=== PATIENT | female | born 1980 | race Caucasian/White ===

== ENCOUNTER 2017-02-26 20:37 | Emergency (ER) | payer BC ==
[2017-02-26] MEDS ORDERED: Sodium Chloride 0.9% 1,000 ML IV ONE (20:53)
[2017-02-26] MEDS ORDERED: Ketorolac 30 MG/ML SDV IVPUSH ONE (20:53)
[2017-02-26] MEDS ORDERED: cefTRIAXone 2 GM in Premix Bag 1 BAG IV ONE (20:54)
--- NOTE | 2017-02-26 21:05 | EDM.PDOC ---
ED HPI GENERAL MEDICAL PROBLEM - General Chief Complaint: ENT Problem Stated Complaint: PT HAS SORE THROAT DIFFICULTY BREATHING Time Seen by Provider: 02/26/17 20:54 Source of Information: Reports: Patient History Limitations: Reports: No Limitations - History of Present Illness INITIAL COMMENTS - FREE TEXT/NARRATIVE: History of present illness: [37-year-old female comes in complaining of malaise, intermittent fevers and a sore throat with increasingly inability to swallow and some difficulty with breathing off and on.] Review of systems: As per history of present illness and below otherwise all systems reviewed and negative. Past medical history: As per history of present illness and as reviewed below otherwise noncontributory. Surgical history: As per history of present illness and as reviewed below otherwise noncontributory. Social history: No reported history of drug or alcohol abuse. Family history: As per history of present illness and as reviewed below otherwise noncontributory. Physical exam: HEENT: Atraumatic, normocephalic, pupils reactive, negative for conjunctival pallor or scleral icterus, mucous membranes moist with oropharyngeal erythema with gross purulent and white patchy exudate bilaterally with hypertrophic and cryptic tonsils, otherwise neck supple, with cervical adenopathy trachea midline. Lungs: Clear to auscultation, breath sounds equal bilaterally, chest nontender. Heart: S1S2, regular, negative for clicks, rubs, or JVD. Abdomen: Soft, nondistended, nontender. Negative for masses or hepatosplenomegaly. Negative for costovertebral tenderness. Pelvis: Stable nontender. Genitourinary: Deferred. Rectal: Deferred. Extremities: Atraumatic, negative for cords or calf pain. Neurovascular unremarkable. Neuro: Awake, alert, oriented. Cranial nerves II through XII unremarkable. Cerebellum unremarkable. Motor and sensory unremarkable throughout. Exam nonfocal. Diagnostics: [CBC, CMP] Therapeutics: [IV fluid, Toradol] Impression: [Strep pharyngitis] Plan: [azithromycin] Definitive disposition and diagnosis as appropriate pending reevaluation and review of above. Throat Pain Score (Numeric/FACES): 8 Bilateral Ear Pain Score (Numeric/FACES): 8 - Related Data Allergies Allergy/AdvReac Type Severity Reaction Status Date / Time adhesive Allergy Rash Verified 02/26/17 20:52 clindamycin Allergy Difficulty Verified 02/26/17 20:50 Breathing Latex, Natural Rubber Allergy Rash Verified 02/26/17 20:52 penicillin Allergy Cannot Verified 02/26/17 20:50 Remember Sulfa (Sulfonamide Allergy Rash Verified 02/26/17 20:50 Antibiotics) sulfamethoxazole Allergy Rash Verified 02/26/17 20:50 [From ] trimethoprim [From ] Allergy Rash Verified 02/26/17 20:50 codeine AdvReac unsure Verified 02/26/17 20:53 Home Meds: Home Meds ALPRAZolam [Alprazolam] 1 mg PO TID 05/12/15 [History] oxyCODONE HCl [oxyCODONE] 30 mg PO Q4H PRN 05/12/15 [History] Morphine 30 mg PO Q4H 08/21/16 [History] Muscle Relaxer 10 mg PO TID 08/21/16 [History] Azithromycin [IJD: Azithromycin] 250 mg PO DAILY #6 tab 02/26/17 [Rx] Past Medical History Other HEENT History: tonsillitis Musculoskeletal History: Reports: Other (See Below) Other Musculoskeletal History: Broken Back in December 2014; wears back amado. Psychiatric History: Reports: Anxiety Social & Family History - Family History Family Medical History: Noncontributory - Tobacco Use Smoking Status *Q: Never Smoker Second Hand Smoke Exposure: Yes - Caffeine Use Caffeine Use: Reports: None - Recreational Drug Use Recreational Drug Use: No Drug Use in Last 12 Months: Yes Recreational Drug Type: Reports: Marijuana/Hashish ED ROS ENT - Review of Systems Review Of Systems: See Below (See history of present illness) ED EXAM, ENT - Physical Exam Exam: See Below (See history of present illness) Course - Vital Signs Last Recorded V/S: Last Vital Signs Temp 36.6 C 02/26/17 20:54 Pulse 120 H 02/26/17 20:54 Resp 16 02/26/17 20:54 BP 139/86 02/26/17 20:54 Pulse Ox 98 02/26/17 20:54 - Orders/Labs/Meds Orders: Active Orders 24 hr Category Date Time Status CULTURE BLOOD [BC] Stat Lab 02/26/17 21:56 Ordered CULTURE BLOOD [BC] Stat Lab 02/26/17 21:56 Ordered CULTURE STREP A CONFIRMATION [RM] Stat Lab 02/26/17 21:30 Results LACTIC ACID,WHOLE BLOOD [BG] Stat Lab 02/26/17 21:56 Ordered STREP SCRN A RAPID W CULT CONF [RM] Stat Lab 02/26/17 21:30 Results Blood Culture x2 Reflex Set [OM.PC] Stat Oth 02/26/17 21:56 Ordered Labs: Laboratory Tests 02/26/17 02/26/17 Range/Units 21:07 21:07 WBC 19.16 H (4.0-11.0) K/uL RBC 4.24 L (4.30-5.90) M/uL Hgb 11.9 L (12.0-16.0) g/dL Hct 37.4 (36.0-46.0) % MCV 88.2 (80.0-98.0) fL MCH 28.1 (27.0-32.0) pg MCHC 31.8 (31.0-37.0) g/dL RDW Std Deviation 47.8 (28.0-62.0) fl RDW Coeff of Reynaldo 15 (11.0-15.0) % Plt Count 309 (150-400) K/uL MPV 9.90 (7.40-12.00) fL Neut % (Auto) 72.7 (48.0-80.0) % Lymph % (Auto) 16.8 (16.0-40.0) % [place] % (Auto) 9.0 (0.0-15.0) % Eos % (Auto) 1.2 (0.0-7.0) % Baso % (Auto) 0.3 (0.0-1.5) % Neut # (Auto) 13.9 H (1.4-5.7) K/uL Lymph # (Auto) 3.2 H (0.6-2.4) K/uL [place] # (Auto) 1.7 H (0.0-0.8) K/uL Eos # (Auto) 0.2 (0.0-0.7) K/uL Baso # (Auto) 0.1 (0.0-0.1) K/uL Nucleated RBC % 0.0 /100WBC Nucleated RBCs # 0 K/uL Sodium 137 (136-146) mmol/L Potassium 3.9 (3.5-5.1) mmol/L Chloride 103 (98-110) mmol/L Carbon Dioxide 23 (21-31) mmol/L BUN 10 (6.0-23.0) mg/dL Creatinine 0.9 (0.6-1.5) mg/dL Est Cr Clr Drug Dosing 75.52 mL/min Estimated GFR (MDRD) > 60.0 ml/min Glucose 96 (60-110) mg/dL Calcium 11.2 H (8.8-10.8) mg/dL Total Bilirubin 0.7 (0.1-1.5) mg/dL AST 15 (5-40) IU/L ALT 14 (8-54) IU/L Alkaline Phosphatase 82 (40-150) Total Protein 8.5 H (6.0-8.0) g/dL Albumin 4.6 (3.5-5.0) g/dL Globulin 3.9 H (2.0-3.5) g/dL Albumin/Globulin Ratio 1.2 L (1.3-2.8) Meds: Medications Discontinued Medications Generic Name Dose Route Start Last Admin Trade Name Freq PRN Reason Stop Dose Admin Sodium Chloride 1,000 mls @ 999 mls/hr 02/26/17 20:53 02/26/17 21:16 Normal Saline IV 02/26/17 21:53 999 mls/hr STAT ONE Administration Ceftriaxone Sodium/Dextrose 2 50 mls @ 100 mls/hr 02/26/17 20:54 02/26/17 21: 18 gm/ Premix IV 02/26/17 21:23 100 mls/hr ONETIME ONE Administration Ketorolac Tromethamine 30 mg 02/26/17 20:53 02/26/17 21:19 Toradol IVPUSH 02/26/17 20:54 30 mg ONETIME ONE Administration Departure - Departure Time of Disposition: 22:05 Disposition: Home, Self-Care 01 Condition: Good Clinical Impression: Pharyngitis, Tonsillitis - Discharge Information Forms: ED Department Discharge Additional Instructions: The following information is given to patients seen in the emergency department who are being discharged to home. This information is to outline your options for follow-up care. We provide all patients seen in our emergency department with a follow-up referral. The need for follow-up, as well as the timing and circumstances, are variable depending upon the specifics of your emergency department visit. If you don't have a primary care physician on staff, we will provide you with a referral. We always advise you to contact your personal physician following an emergency department visit to inform them of the circumstance of the visit and for follow-up with them and/or the need for any referrals to a consulting specialist. The emergency department will also refer you to a specialist when appropriate. This referral assures that you have the opportunity for follow-up care with a specialist. All of these measure are taken in an effort to provide you with optimal care, which includes your follow-up. Under all circumstances we always encourage you to contact your private physician who remains a resource for coordinating your care. When calling for follow-up care, please make the office aware that this follow-up is from your recent emergency room visit. If for any reason you are refused follow-up, please contact the [facility] Emergency Department at and asked to speak to the emergency department charge nurse. You're been given a initial dose of antibiotics today the rest of your prescription will have been sent to her pharmacy record which is G NG Rest hydrate You may take [id number] ibuprofen or Tylenol for pain or discomfort Follow-up with your PCP in 1-2 days Return to ED as needed as discussed - My Orders Last 24 Hours: My Active Orders 02/26/17 21:30 CULTURE STREP A CONFIRMATION [RM] Stat STREP SCRN A RAPID W CULT CONF [RM] Stat 02/26/17 21:56 CULTURE BLOOD [BC] Stat CULTURE BLOOD [BC] Stat LACTIC ACID,WHOLE BLOOD [BG] Stat Blood Culture x2 Reflex Set [OM.PC] Stat - Assessment/Plan Last 24 Hours: My Active Orders 02/26/17 21:30 CULTURE STREP A CONFIRMATION [RM] Stat STREP SCRN A RAPID W CULT CONF [RM] Stat 02/26/17 21:56 CULTURE BLOOD [BC] Stat CULTURE BLOOD [BC] Stat LACTIC ACID,WHOLE BLOOD [BG] Stat Blood Culture x2 Reflex Set [OM.PC] Stat
[2017-02-26 21:35] LABS: CHLORIDE,CL 103 mmol/L (98-110); SODIUM,NA 137 mmol/L (136-146)
[2017-02-26] MEDS ORDERED: Azithromycin 250 MG Tab PO ONE (22:02)
[2017-02-26 23:14] VITALS: BP 160/85
== END 2017-02-26 22:55 | disposition home or self-care (01) ==
LOC: MW.ED 20:37
DX: J02.0 Streptococcal pharyngitis (principal); F41.9 Anxiety disorder, unspecified; Z79.2 Long term (current) use of antibiotics; Z88.0 Allergy status to penicillin; Z88.1 Allergy status to other antibiotic agents; Z88.2 Allergy status to sulfonamides; Z88.5 Allergy status to narcotic agent; Z91.040 Latex allergy status
CPT/HCPCS: 80053; 83605; 85025; 87081; 87880; 96365; 96375; 99283; A9270; J0696; J1885; J7040; 99284

== ENCOUNTER 2017-05-02 23:27 | Emergency (ER) | payer BC ==
[2017-05-02] MEDS ORDERED: diphenhydrAMINE 50 MG/ML SDV ONE (23:34)
[2017-05-02] MEDS ORDERED: Albuterol/Ipratropium 3.0-0.5 MG/3 ML Neb Soln ONE (23:34)
[2017-05-02] MEDS ORDERED: methylPREDNISolone Sodium Succinate 125 MG/2 ML SDV ONE (23:35)
[2017-05-02] MEDS ORDERED: Albuterol/Ipratropium 3.0-0.5 MG/3 ML Neb Soln NEB ONE (23:50)
[2017-05-02] MEDS ORDERED: diphenhydrAMINE 50 MG/ML SDV IVPUSH ONE (23:50)
--- NOTE | 2017-05-02 23:50 | EDM.PDOC ---
ED HPI GENERAL MEDICAL PROBLEM - General Chief Complaint: Allergic Reaction Stated Complaint: ALLERGIC REACTION Time Seen by Provider: 05/02/17 23:39 - History of Present Illness INITIAL COMMENTS - FREE TEXT/NARRATIVE: HISTORY AND PHYSICAL: History of present illness: Patient 37-year-old female presents with a concern of hives and difficulty breathing this is relatively mild she has had a similar episode in past that she thought was due to antibiotics she does not know what may have been the cause of this event that started prior to arrival she denies any other concern. Review of systems: As per history of present illness and below otherwise all systems reviewed and negative. Past medical history: As per history of present illness and as reviewed below otherwise noncontributory. Surgical history: As per history of present illness and as reviewed below otherwise noncontributory. Social history: No reported history of drug or alcohol abuse. Family history: As per history of present illness and as reviewed below otherwise noncontributory. Physical exam: HEENT: Atraumatic, normocephalic, pupils reactive, negative for conjunctival pallor or scleral icterus, mucous membranes moist, throat clear, neck supple, nontender, trachea midline. Lungs: Clear to auscultation, breath sounds equal bilaterally, chest nontender. Heart: S1S2, regular, negative for clicks, rubs, or JVD. Abdomen: Soft, nondistended, nontender. Negative for masses or hepatosplenomegaly. Negative for costovertebral tenderness. Pelvis: Stable nontender. Genitourinary: Deferred. Rectal: Deferred. Extremities: Atraumatic, negative for cords or calf pain. Neurovascular unremarkable. Neuro: Awake, alert, oriented. Cranial nerves II through XII unremarkable. Cerebellum unremarkable. Motor and sensory unremarkable throughout. Exam nonfocal. Skin: Patient has a urticarial type rash noted somewhat diffuse no tongue or lip swelling noted Diagnostics: None Therapeutics: IV Benadryl 50 mg IV Cymetra 125 mg IV albuterol ipratropium nebulizer Impression: #1 presumptive acute allergic reaction etiology to be determined Definitive disposition and diagnosis as appropriate pending reevaluation and review of above. - Related Data Allergies Allergy/AdvReac Type Severity Reaction Status Date / Time adhesive Allergy Rash Verified 05/02/17 23:43 clindamycin Allergy Difficulty Verified 05/02/17 23:43 Breathing Latex, Natural Rubber Allergy Rash Verified 05/02/17 23:43 penicillin Allergy Cannot Verified 05/02/17 23:43 Remember Sulfa (Sulfonamide Allergy Rash Verified 05/02/17 23:43 Antibiotics) sulfamethoxazole Allergy Rash Verified 05/02/17 23:43 [From ] trimethoprim [From ] Allergy Rash Verified 05/02/17 23:43 codeine AdvReac unsure Verified 05/02/17 23:43 Home Meds: Home Meds ALPRAZolam [Alprazolam] 1 mg PO TID 05/12/15 [History] oxyCODONE HCl [oxyCODONE] 30 mg PO Q4H PRN 05/12/15 [History] Morphine 30 mg PO Q4H 08/21/16 [History] Muscle Relaxer 10 mg PO TID 08/21/16 [History] Azithromycin [IJD: Azithromycin] 250 mg PO DAILY #6 tab 02/26/17 [Rx] Past Medical History Other HEENT History: tonsillitis Cardiovascular History: Reports: None Respiratory History: Reports: None Gastrointestinal History: Reports: None Musculoskeletal History: Reports: Other (See Below) Other Musculoskeletal History: Broken Back in December 2014; wears back amado. Psychiatric History: Reports: Anxiety Dermatologic History: Reports: None - Infectious Disease History Infectious Disease History: Reports: Chicken Pox, Influenza - Past Surgical History HEENT Surgical History: Reports: Oral Surgery Cardiovascular Surgical History: Reports: None Social & Family History - Family History Family Medical History: Noncontributory - Tobacco Use Smoking Status *Q: Never Smoker Second Hand Smoke Exposure: Yes - Caffeine Use Caffeine Use: Reports: None - Recreational Drug Use Recreational Drug Use: No Drug Use in Last 12 Months: Yes Recreational Drug Type: Reports: Marijuana/Hashish ED ROS ALLERGIC REACTION - Review of Systems Review Of Systems: ROS reveals no pertinent complaints other than HPI. ED EXAM GENERAL NO PERIP PULSE - Physical Exam Exam: See Below (See dictation) Course - Orders/Labs/Meds Meds: Medications Discontinued Medications Generic Name Dose Route Start Last Admin Trade Name Freq PRN Reason Stop Dose Admin Albuterol/Ipratropium Confirm 05/02/17 23:34 Duoneb 3.0-0.5 Mg/3 Ml Administered 05/02/17 23:35 Dose 3 ml .ROUTE .STK-MED ONE Diphenhydramine HCl Confirm 05/02/17 23:34 Benadryl Administered 05/02/17 23:35 Dose 50 mg .ROUTE .STK-MED ONE Methylprednisolone Sodium Succinate Confirm 05/02/17 23:35 Solu-Medrol Administered 05/02/17 23:36 Dose 125 mg .ROUTE .STK-MED ONE Departure - Departure Time of Disposition: 23:49 Disposition: Home, Self-Care 01 Condition: Good Clinical Impression: Allergic reaction - Discharge Information Additional Instructions: The following information is given to patients seen in the emergency department who are being discharged to home. This information is to outline your options for follow-up care. We provide all patients seen in our emergency department with a follow-up referral. The need for follow-up, as well as the timing and circumstances, are variable depending upon the specifics of your emergency department visit. If you don't have a primary care physician on staff, we will provide you with a referral. We always advise you to contact your personal physician following an emergency department visit to inform them of the circumstance of the visit and for follow-up with them and/or the need for any referrals to a consulting specialist. The emergency department will also refer you to a specialist when appropriate. This referral assures that you have the opportunity for followup care with a specialist. All of these measure are taken in an effort to provide you with optimal care, which includes your followup. Under all circumstances we always encourage you to contact your private physician who remains a resource for coordinating your care. When calling for followup care, please make the office aware that this follow-up is from your recent emergency room visit. If for any reason you are refused follow-up, please contact the [facility] emergency department at and asked to speak to the emergency department charge nurse. Albuterol as directed Medrol Dosepak is prescribed Benadryl as prescribed EpiPen as directed follow primary medical doctor 1 today's return as needed as discussed]
[2017-05-02] MEDS ORDERED: methylPREDNISolone Sodium Succinate 125 MG/2 ML SDV IVPUSH ONE (23:51)
[2017-05-03 01:44] VITALS: BP 143/69
== END 2017-05-03 01:05 | disposition home or self-care (01) ==
LOC: MW.ED 23:27
DX: L50.0 Allergic urticaria (principal); R06.00 Dyspnea, unspecified; F41.9 Anxiety disorder, unspecified; Z91.040 Latex allergy status; Z88.2 Allergy status to sulfonamides; Z88.1 Allergy status to other antibiotic agents; Z88.5 Allergy status to narcotic agent; Z79.899 Other long term (current) drug therapy; Z88.0 Allergy status to penicillin
CPT/HCPCS: 96374; 96375; 99283; J1200; J2930

== ENCOUNTER 2017-09-17 20:20 | Emergency (ER) | payer BC ==
[2017-09-17] MEDS ORDERED: Ondansetron 4 MG/2 ML SDV IVPUSH ONE (21:58)
[2017-09-17] MEDS ORDERED: Pantoprazole 40 MG Vial IVPUSH ONE (21:58)
[2017-09-17] MEDS ORDERED: Sodium Chloride 0.9% 1,000 ML IV ONE (21:58)
[2017-09-17] MEDS ORDERED: Morphine 4 MG/ML Syringe IVPUSH ONE (21:58)
--- NOTE | 2017-09-17 23:20 | EDM.PDOC ---
ED HPI GENERAL MEDICAL PROBLEM - General Chief Complaint: General Stated Complaint: POSSIBLE ULCER Time Seen by Provider: 09/17/17 21:17 Source of Information: Reports: Patient History Limitations: Reports: No Limitations - History of Present Illness INITIAL COMMENTS - FREE TEXT/NARRATIVE: History of present illness: [37-year-old female comes in complaining of dental abscess. Patient indicates that she has been seen by her PCP as well as her dentist and is being referred to an business development professional for further invasive procedures but in the meantime she is taken quite a bit of medication and now she has abdominal pain, as well as vomiting. Patient is concerned she has developed an ulcer. Patient became she has a history of an ulcer that had healed and it feels like the same pain.] Review of systems: As per history of present illness and below otherwise all systems reviewed and negative. Past medical history: As per history of present illness and as reviewed below otherwise noncontributory. Surgical history: As per history of present illness and as reviewed below otherwise noncontributory. Social history: No reported history of drug or alcohol abuse. Family history: As per history of present illness and as reviewed below otherwise noncontributory. Physical exam: HEENT: Atraumatic, normocephalic, pupils reactive, negative for conjunctival pallor or scleral icterus, mucous membranes moist, throat clear, neck supple, nontender, trachea midline. Lungs: Clear to auscultation, breath sounds equal bilaterally, chest nontender. Heart: S1S2, regular, negative for clicks, rubs, or JVD. Abdomen: Soft, nondistended, nontender. Negative for masses or hepatosplenomegaly. Negative for costovertebral tenderness. Pelvis: Stable nontender. Genitourinary: Deferred. Rectal: Deferred. Extremities: Atraumatic, negative for cords or calf pain. Neurovascular unremarkable. Neuro: Awake, alert, oriented. Cranial nerves II through XII unremarkable. Cerebellum unremarkable. Motor and sensory unremarkable throughout. Exam nonfocal. Patient has had several run of antibiotics. Will not prescribe new antibiotics because she continues to be on previous antibiotics will refer her back to Dr. tamayo her PCP Diagnostics: [] Therapeutics: [Morphine Zofran] Impression: [Dental abscess] Plan: [Fall with Dr. Winn in the a.m.] Definitive disposition and diagnosis as appropriate pending reevaluation and review of above. left upper tooth pain Pain Score (Numeric/FACES): 8 - Related Data Allergies Allergy/AdvReac Type Severity Reaction Status Date / Time adhesive Allergy Rash Verified 05/02/17 23:43 clindamycin Allergy Difficulty Unverified 09/17/17 20:51 Breathing Latex, Natural Rubber Allergy Rash Verified 05/02/17 23:43 penicillin Allergy Cannot Verified 05/02/17 23:43 Remember Sulfa (Sulfonamide Allergy Rash Verified 05/02/17 23:43 Antibiotics) sulfamethoxazole Allergy Rash Verified 05/02/17 23:43 [From ] trimethoprim [From ] Allergy Rash Verified 05/02/17 23:43 codeine AdvReac unsure Verified 05/02/17 23:43 Home Meds: Home Meds ALPRAZolam [Alprazolam] 2 mg PO TID 05/12/15 [History] oxyCODONE HCl [oxyCODONE] 30 mg PO Q4H PRN 05/12/15 [History] Morphine 30 mg PO DAILY 08/21/16 [History] Muscle Relaxer 10 mg PO TID 08/21/16 [History] Past Medical History - Past Health History Medical/Surgical History: Denies Medical/Surgical History Other HEENT History: tonsillitis Cardiovascular History: Reports: None, Heart Murmur Respiratory History: Reports: None Gastrointestinal History: Reports: None, Other (See Below) Other Gastrointestinal History: ulcer 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 Psychiatric History: Reports: Anxiety Hematologic History: Reports: None Dermatologic History: Reports: None - Infectious Disease History Infectious Disease History: Reports: Chicken Pox - Past Surgical History HEENT Surgical History: Reports: Oral Surgery Cardiovascular Surgical History: Reports: None Social & Family History - Family History Family Medical History: Noncontributory - Tobacco Use Smoking Status *Q: Never Smoker Second Hand Smoke Exposure: Yes - Caffeine Use Caffeine Use: Reports: None - Recreational Drug Use Recreational Drug Use: No Drug Use in Last 12 Months: Yes Recreational Drug Type: Reports: Marijuana/Hashish ED ROS GENERAL - Review of Systems Review Of Systems: See Below (History of present illness) ED EXAM, GENERAL - Physical Exam Exam: See Below (See history of present illness) Course - Vital Signs Last Recorded V/S: Last Vital Signs Temp 37.1 C 09/17/17 20:54 Pulse 104 H 09/17/17 20:54 Resp 18 09/17/17 20:54 BP 154/113 H 09/17/17 20:54 Pulse Ox 98 09/17/17 20:54 - Orders/Labs/Meds Meds: Medications Discontinued Medications Generic Name Dose Route Start Last Admin Trade Name Love PRN Reason Stop Dose Admin Sodium Chloride 1,000 mls @ 999 mls/hr 09/17/17 21:58 09/17/17 22:59 Normal Saline IV 09/17/17 22:58 999 mls/hr STAT ONE Administration Morphine Sulfate 4 mg 09/17/17 21:58 09/17/17 22:58 Morphine IVPUSH 09/17/17 21:59 4 mg ONETIME ONE Administration Ondansetron HCl 4 mg 09/17/17 21:58 09/17/17 22:59 Zofran IVPUSH 09/17/17 21:59 4 mg ONETIME ONE Administration Pantoprazole Sodium 80 mg 09/17/17 21:58 09/17/17 22:59 Protonix Iv IVPUSH 09/17/17 21:59 80 mg .BOLUS ONE Administration Departure - Departure Time of Disposition: 23:19 Disposition: Home, Self-Care 01 Condition: Good Clinical Impression: Pain, dental, Abscess - Discharge Information Referrals: Rainer Winn DO [Primary Care Provider] - Additional Instructions: The following information is given to patients seen in the emergency department who are being discharged to home. This information is to outline your options for follow-up care. We provide all patients seen in our emergency department with a follow-up referral. The need for follow-up, as well as the timing and circumstances, are variable depending upon the specifics of your emergency department visit. If you don't have a primary care physician on staff, we will provide you with a referral. We always advise you to contact your personal physician following an emergency department visit to inform them of the circumstance of the visit and for follow-up with them and/or the need for any referrals to a consulting specialist. The emergency department will also refer you to a specialist when appropriate. This referral assures that you have the opportunity for follow-up care with a specialist. All of these measure are taken in an effort to provide you with optimal care, which includes your follow-up. Under all circumstances we always encourage you to contact your private physician who remains a resource for coordinating your care. When calling for follow-up care, please make the office aware that this follow-up is from your recent emergency room visit. If for any reason you are refused follow-up, please contact the [facility] Emergency Department at and asked to speak to the emergency department charge nurse. Follow-up with Dr. Winn in the a.m. You may take Zantac/ranitidine [id number] for any GI distress as discussed Return to ER as needed as discussed
[2017-09-18 03:58] VITALS: BP 137/97
== END 2017-09-18 00:17 | disposition home or self-care (01) ==
LOC: MW.ED 20:20
DX: K04.7 Periapical abscess without sinus (principal); F41.9 Anxiety disorder, unspecified; Z77.22 Contact with and (suspected) exposure to environmental tobacco smoke (acute) (chronic); Z79.899 Other long term (current) drug therapy; Z88.0 Allergy status to penicillin; Z88.1 Allergy status to other antibiotic agents; Z88.2 Allergy status to sulfonamides; Z88.5 Allergy status to narcotic agent; Z91.040 Latex allergy status; Z91.048 Other nonmedicinal substance allergy status
CPT/HCPCS: 96361; 96374; 96375; 99282; C9113; J2270; J2405; J7040

== ENCOUNTER 2017-11-03 06:17 | Emergency (ER) | payer BC ==
[2017-11-03] MEDS ORDERED: methylPREDNISolone Sodium Succinate 125 MG/2 ML SDV IM ONE (07:19)
[2017-11-03] MEDS ORDERED: Albuterol/Ipratropium 3.0-0.5 MG/3 ML Neb Soln NEB ONE (07:19)
--- NOTE | 2017-11-03 07:24 | EDM.PDOC ---
ED HPI GENERAL MEDICAL PROBLEM - General Chief Complaint: General Stated Complaint: COUGH Time Seen by Provider: 11/03/17 07:20 Source of Information: Reports: Patient - History of Present Illness INITIAL COMMENTS - FREE TEXT/NARRATIVE: HISTORY AND PHYSICAL: History of present illness: []Patient has a history of asthma and bronchitis should this had sore throat and cough over the last week triggering her asthma no fever nausea vomiting chills sweats She has a secondary complaint of a dental abscess and history of gastric ulcer. she has not been tolerating medicines due to this combination for this she has been on clindamycin and doxycycline. No fever nausea vomiting chills sweats no chest pain shortness breath headache dizziness or palpitation no bowel or urine symptoms Review of systems: As per history of present illness and below otherwise all systems reviewed and negative. Past medical history: As per history of present illness and as reviewed below otherwise noncontributory. Surgical history: As per history of present illness and as reviewed below otherwise noncontributory. Social history: No reported history of drug or alcohol abuse. Family history: As per history of present illness and as reviewed below otherwise noncontributory. Physical exam: HEENT: Atraumatic, normocephalic, pupils reactive, negative for conjunctival pallor or scleral icterus, mucous membranes moist, throat clear, neck supple, nontender, trachea midline. Lungs: Clear to auscultation, breath sounds equal bilaterally, chest nontender. Heart: S1S2, regular, negative for clicks, rubs, or JVD. Abdomen: Soft, nondistended, nontender. Negative for masses or hepatosplenomegaly. Negative for costovertebral tenderness. Pelvis: Stable nontender. Genitourinary: Deferred. Rectal: Deferred. Extremities: Atraumatic, negative for cords or calf pain. Neurovascular unremarkable. Neuro: Awake, alert, oriented. Cranial nerves II through XII unremarkable. Cerebellum unremarkable. Motor and sensory unremarkable throughout. Exam nonfocal. Diagnostics: [Strep influenza Chest 2 views ] Therapeutics: DuoNeb Solu-Medrol 125 mg IM [Levaquin 500 mg by mouth daily #10 no refill ProAir HFA Medrol Dosepak ] Impression: [Dental abscess partially treated Acute bronchitis Chronic history of baseline] Definitive disposition and diagnosis as appropriate pending reevaluation and review of above. head Pain Score (Numeric/FACES): 5 back Pain Score (Numeric/FACES): 6 - Related Data Allergies Allergy/AdvReac Type Severity Reaction Status Date / Time adhesive Allergy Rash Verified 11/03/17 06:22 clindamycin Allergy Difficulty Unverified 11/03/17 06:22 Breathing Latex, Natural Rubber Allergy Rash Verified 11/03/17 06:22 penicillin Allergy Cannot Verified 11/03/17 06:22 Remember Sulfa (Sulfonamide Allergy Rash Verified 11/03/17 06:22 Antibiotics) sulfamethoxazole Allergy Rash Verified 11/03/17 06:22 [From Septra] trimethoprim [From Mayra] Allergy Rash Verified 11/03/17 06:22 codeine AdvReac unsure Verified 11/03/17 06:22 Home Meds: Home Meds ALPRAZolam [Alprazolam] 1 mg PO BID 05/12/15 [History] oxyCODONE HCl [oxyCODONE] 30 mg PO Q4H PRN 05/12/15 [History] Morphine 30 mg PO BID 08/21/16 [History] Past Medical History - Past Health History Medical/Surgical History: Denies Medical/Surgical History Other HEENT History: tonsillitis Cardiovascular History: Reports: Heart Murmur Respiratory History: Reports: None Gastrointestinal History: Reports: Other (See Below) Other Gastrointestinal History: ulcer 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: Musculoskeletal History: Reports: Other (See Below) Other Musculoskeletal History: Broken Back in December 2014 Psychiatric History: Reports: Anxiety Hematologic History: Reports: None Dermatologic History: Reports: None - Infectious Disease History Infectious Disease History: Reports: Chicken Pox - Past Surgical History HEENT Surgical History: Reports: Oral Surgery Cardiovascular Surgical History: Reports: None Social & Family History - Family History Family Medical History: Noncontributory - Tobacco Use Smoking Status *Q: Never Smoker Second Hand Smoke Exposure: Yes - Caffeine Use Caffeine Use: Reports: None - Recreational Drug Use Recreational Drug Use: No Drug Use in Last 12 Months: Yes Recreational Drug Type: Reports: Marijuana/Hashish ED ROS GENERAL - Review of Systems Review Of Systems: ROS reveals no pertinent complaints other than HPI. ED EXAM, GENERAL - Physical Exam Exam: See Below Course - Vital Signs Last Recorded V/S: Last Vital Signs Temp 98.9 F 11/03/17 06:17 Pulse 122 H 11/03/17 06:17 Resp 20 11/03/17 06:17 BP 164/113 H 11/03/17 06:17 Pulse Ox 95 11/03/17 06:17 - Orders/Labs/Meds Orders: Active Orders 24 hr Category Date Time Status RT Aerosol Therapy [RC] ASDIRECTED Care 11/03/17 07:19 Ordered Chest 1V Frontal [CR] Stat Exams 11/03/17 06:39 Taken CULTURE STREP A CONFIRMATION [] Stat Lab 11/03/17 06:35 Results CULTURE URINE [RM] Stat Lab 11/03/17 06:59 Ordered STREP SCRN A RAPID W CULT CONF [] Stat Lab 11/03/17 06:35 Results Albuterol/Ipratropium [DuoNeb 3.0-0.5 MG/3 ML] Med 11/03/17 07:19 Once 3 ml NEB ONETIME ONE methylPREDNISolone Sod Succ [Solu-MEDROL] Med 11/03/17 07:19 Once 125 mg IM ONETIME ONE Medication Orders Albuterol/Ipratropium (Duoneb 3.0-0.5 Mg/3 Ml) 3 ml NEB ONETIME ONE Stop: 11/03/17 07:20 Methylprednisolone Sodium Succinate (Solu-Medrol) 125 mg IM ONETIME ONE Stop: 11/03/17 07:20 Labs: Laboratory Tests 11/03/17 11/03/17 Range/Units 06:35 06:35 Urine Color YELLOW Urine Appearance CLEAR Urine pH 6.0 (5.0-8.0) Ur Specific [place] 1.015 (1.001-1.035) Urine Protein NEGATIVE (NEGATIVE) mg/dL Urine Glucose (UA) NEGATIVE (NEGATIVE) mg/dL Urine Ketones NEGATIVE (NEGATIVE) mg/dL Urine Occult Blood NEGATIVE (NEGATIVE) Urine Nitrite NEGATIVE (NEGATIVE) Urine Bilirubin NEGATIVE (NEGATIVE) Urine Urobilinogen 0.2 (<2.0) EU/dL Ur Leukocyte Esterase NEGATIVE (NEGATIVE) Urine RBC 0-1 (0-2/HPF) Urine WBC 0-1 (0-5/HPF) Ur Epithelial Cells RARE (NONE-FEW) Urine Bacteria RARE (NEGATIVE) Urine HCG, Qual NEGATIVE (NEGATIVE) Meds: Medications Generic Name Dose Route Start Last Admin Trade Name Freq PRN Reason Stop Dose Admin Albuterol/Ipratropium 3 ml 11/03/17 07:19 Duoneb 3.0-0.5 Mg/3 Ml NEB 11/03/17 07:20 ONETIME ONE Methylprednisolone Sodium Succinate 125 mg 11/03/17 07:19 Solu-Medrol IM 11/03/17 07:20 ONETIME ONE Departure - Departure Time of Disposition: 07:23 Disposition: Home, Self-Care 01 Condition: Good Clinical Impression: Acute bronchitis - Discharge Information Referrals: Kellie Maya BIN FILLER [Primary Care Provider] - Additional Instructions: Follow-up with neurosurgeon for continued management of dental abscess Medication as prescribed Return if symptoms persist or worsen Take your inhaler 4 times daily for 7-10 days Follow-up with primary care as needed The following information is given to patients seen in the emergency department who are being discharged to home. This information is to outline your options for follow-up care. We provide all patients seen in our emergency department with a follow-up referral. The need for follow-up, as well as the timing and circumstances, are variable depending upon the specifics of your emergency department visit. If you don't have a primary care physician on staff, we will provide you with a referral. We always advise you to contact your personal physician following an emergency department visit to inform them of the circumstance of the visit and for follow-up with them and/or the need for any referrals to a consulting specialist. The emergency department will also refer you to a specialist when appropriate. This referral assures that you have the opportunity for follow-up care with a specialist. All of these measure are taken in an effort to provide you with optimal care, which includes your follow-up. Under all circumstances we always encourage you to contact your private physician who remains a resource for coordinating your care. When calling for follow-up care, please make the office aware that this follow-up is from your recent emergency room visit. If for any reason you are refused follow-up, please contact the [facility] emergency department at and asked to speak to the emergency department charge nurse. - My Orders Last 24 Hours: My Active Orders 11/03/17 07:19 RT Aerosol Therapy [RC] ASDIRECTED Albuterol/Ipratropium [DuoNeb 3.0-0.5 MG/3 ML] 3 ml NEB ONETIME ONE methylPREDNISolone Sod Succ [Solu-MEDROL] 125 mg IM ONETIME ONE - Assessment/Plan Last 24 Hours: My Active Orders 11/03/17 07:19 RT Aerosol Therapy [RC] ASDIRECTED Albuterol/Ipratropium [DuoNeb 3.0-0.5 MG/3 ML] 3 ml NEB ONETIME ONE methylPREDNISolone Sod Succ [Solu-MEDROL] 125 mg IM ONETIME ONE
[2017-11-03 07:52] VITALS: BP 190/93
--- NOTE | 2017-11-03 15:19 | CR ---
EXAM DATE: 11/03/17 PATIENT'S AGE: 37 Patient: NAHID CHENG Facility: [place], [place] Site . Site : 1980 Study: XRay Chest [id number]/20/2018 7:06:07 AM Ordering Physician: Doctor Begum Final Report: INDICATION: Cough. Nonsmoker. TECHNIQUE: Single-view chest. COMPARISON: 07/13/2015. FINDINGS: Heart mildly enlarged which is a new finding. Mild increased pulmonary vascularity in the upper lungs new and suggesting pulmonary venous congestion. Lungs clear without infiltrate or consolidation. Chest otherwise unremarkable. Dictated by Awais Roman MD @ Nov 03 2017 7:08AM (Electronic Signature) Report Signed by Proxy. FREDIS
== END 2017-11-03 07:50 | disposition home or self-care (01) ==
LOC: MW.ED 06:17
DX: J20.9 Acute bronchitis, unspecified (principal); K04.7 Periapical abscess without sinus; F41.9 Anxiety disorder, unspecified; Z77.22 Contact with and (suspected) exposure to environmental tobacco smoke (acute) (chronic); Z88.0 Allergy status to penicillin; Z88.1 Allergy status to other antibiotic agents; Z88.2 Allergy status to sulfonamides; Z91.040 Latex allergy status; Z91.048 Other nonmedicinal substance allergy status
CPT/HCPCS: 71045; 81001; 81025; 87081; 87086; 87804; 87880; 94640; 96372; 99285; J2930; 99283

== ENCOUNTER 2018-02-09 18:50 | Emergency (ER) | payer BC ==
[2018-02-09 19:02] VITALS: BP 138/77
--- NOTE | 2018-02-09 19:26 | EDM.PDOC ---
ED HPI GENERAL MEDICAL PROBLEM - General Chief Complaint: General Stated Complaint: HBP Time Seen by Provider: 02/09/18 19:26 Source of Information: Reports: Patient, EMS - History of Present Illness INITIAL COMMENTS - FREE TEXT/NARRATIVE: HISTORY AND PHYSICAL: History of present illness: 38-year-old female presenting emergency department by ambulance with chief complaint of epigastric pain 1 day. Patient states that she has had epigastric pain for 1 day. She has a history of gastric ulcers as per patient. States that she did have an episode of vomitus that looked blood-tinged. States that she is currently in pain 8 out of 10. Patient regularly uses narcotics for pain control for a back injury including MS Contin and oxycodone. Patient states that she was scheduled for surgery today for her endometriosis by Dr. noel. Secondary to her pain and blood pressure reading they canceled the surgery and suggested she may need to go to a larger facility to have the procedure done. Patient denies any fever, chills, malaise. She is somewhat anxious and states she has not been able to sleep. She is requesting something to help her sleep. Currently denies any chest pain, palpitations, shortness breath, syncopal episodes, or focal neurologic deficits. Review of systems: As per history of present illness and below otherwise all systems reviewed and negative. Past medical history: As per history of present illness and as reviewed below otherwise noncontributory. Surgical history: As per history of present illness and as reviewed below otherwise noncontributory. Social history: No reported history of drug or alcohol abuse. Family history: As per history of present illness and as reviewed below otherwise noncontributory. Physical exam: HEENT: Atraumatic, normocephalic, pupils reactive, negative for conjunctival pallor or scleral icterus, mucous membranes moist, throat clear, neck supple, nontender, trachea midline. Lungs: Clear to auscultation, breath sounds equal bilaterally, chest nontender. Heart: S1S2, regular, negative for clicks, rubs, or JVD. Abdomen: Soft, nondistended, nontender. Negative for masses or hepatosplenomegaly. Negative for costovertebral tenderness. Pelvis: Stable nontender. Genitourinary: Deferred. Rectal: Deferred. Extremities: Atraumatic, negative for cords or calf pain. Neurovascular unremarkable. Neuro: Awake, alert, oriented. Cranial nerves II through XII unremarkable. Cerebellum unremarkable. Motor and sensory unremarkable throughout. Exam nonfocal. Diagnostics: CBC, CMP, UA, urine drug screen Therapeutics: 1 L normal saline, GI cocktail, Toradol 30 mg IV, famotidine 20mg IV Impression: [] Plan: 2100-as per nursing patient refusing any blood draw. Requesting IV fluids and pain medication. Of note patient is chronic pain and Edd on MS Contin as well as oxycodone. Toradol 30 mg IV ordered. 2300- as per nursing they went in to check on patient and she left AMA. She did have her IV still in place. Law enforcement was notified. left side of abdomen Pain Score (Numeric/FACES): 8 - Related Data Allergies Allergy/AdvReac Type Severity Reaction Status Date / Time adhesive Allergy Blisters Verified 02/09/18 19:02 Latex, Natural Rubber Allergy Blisters Verified 02/09/18 19:02 penicillin Allergy Cannot Verified 02/09/18 19:02 Remember Sulfa (Sulfonamide Allergy Rash Verified 02/09/18 19:02 Antibiotics) sulfamethoxazole Allergy Rash Verified 02/09/18 19:02 [From ] trimethoprim [From ] Allergy Rash Verified 02/09/18 19:02 codeine AdvReac unsure Verified 02/09/18 19:02 Home Meds: Home Meds oxyCODONE HCl [oxyCODONE] 30 mg PO Q6H PRN 05/12/15 [History] Morphine 30 mg PO BID 08/21/16 [History] ALPRAZolam [Xanax] 1 - 2 tab PO ASDIRECTED PRN 12/14/17 [History] Albuterol [IJD: Albuterol HFA] 2 puff INH ASDIRECTED PRN 12/14/17 [History] Budesonide/Formoterol Fumarate [Symbicort 160-4.5 Mcg Inhaler] 2 puff INH ASDIRECTED PRN 12/14/17 [History] Cholecalciferol (Vitamin D3) [Vitamin D3] 50,000 units PO WEEKLY 12/14/17 [ History] Potassium/Calcium/Magnes/Manga [Emergen-C Electro Mix Packet] 1 dose PO ASDIRECTED 12/14/17 [History] tiZANidine [Zanaflex] 2 tab PO ASDIRECTED PRN 12/14/17 [History] Labetalol HCl [Labetalol] 1 tab PO BID 02/05/18 [History] Sertraline HCl 50 mg PO DAILY 02/05/18 [History] Past Medical History - Past Health History Medical/Surgical History: Denies Medical/Surgical History HEENT History: Reports: Allergic Rhinitis Cardiovascular History: Reports: Heart Murmur, Hypertension Other Cardiovascular History: HTN Respiratory History: Reports: Asthma Gastrointestinal History: Reports: Other (See Below) Other Gastrointestinal History: ulcer, occasional heartburn Genitourinary History: Reports: Other (See Below) Other Genitourinary History: kidney infections in the past 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: Musculoskeletal History: Reports: Back Pain, Chronic, Fracture, Other (See Below ) Other Musculoskeletal History: Broken Back in December 2014; Neurological History: Reports: Migraines Psychiatric History: Reports: Anxiety Endocrine/Metabolic History: Reports: None Hematologic History: Reports: None Dermatologic History: Reports: None - Infectious Disease History Infectious Disease History: Reports: Chicken Pox - Past Surgical History Head Surgeries/Procedures: Reports: None HEENT Surgical History: Reports: Oral Surgery Other HEENT Surgeries/Procedures: multiple oral surgeries Cardiovascular Surgical History: Reports: None Social & Family History - Family History Family Medical History: Noncontributory - Tobacco Use Smoking Status *Q: Never Smoker - Caffeine Use Caffeine Use: Reports: None - Recreational Drug Use Recreational Drug Use: No ED ROS GENERAL - Review of Systems Review Of Systems: See Below ED EXAM, GENERAL - Physical Exam Exam: See Below Course - Vital Signs Last Recorded V/S: Last Vital Signs Temp 98 F 02/09/18 18:50 Pulse 109 H 02/09/18 18:50 Resp 18 02/09/18 18:50 BP 138/77 02/09/18 18:50 Pulse Ox 95 02/09/18 18:50 - Orders/Labs/Meds Orders: Active Orders 24 hr Category Date Time Status DRUG SCREEN, URINE [URCHEM] Stat Lab 02/09/18 20:31 Ordered URINALYSIS W/MICROSCOPIC [UA W/MICROSCOPIC] [URIN] Stat Lab 02/09/18 20:31 Ordered Meds: Medications Discontinued Medications Generic Name Dose Route Start Last Admin Trade Name Freq PRN Reason Stop Dose Admin Al Hydroxide/Mg Hydroxide 15 0 ml 02/09/18 22:57 02/09/18 23:01 ml/ Lidocaine HCl 5 ml PO 02/09/18 22:58 20 each ONETIME ONE Administration Famotidine 20 mg 02/09/18 21:13 02/09/18 21:29 Pepcid IVPUSH 02/09/18 21:14 20 mg ONETIME ONE Administration Sodium Chloride 1,000 mls @ 999 mls/hr 02/09/18 20:58 02/09/18 21:07 Normal Saline IV 02/09/18 21:58 999 mls/hr .Bolus ONE Administration Ketorolac Tromethamine 30 mg 02/09/18 21:48 02/09/18 21:58 Toradol IVPUSH 02/09/18 21:49 30 mg ONETIME ONE Administration Departure - Departure Time of Disposition: 23:12 Disposition: Eloped 07 Condition: Good Clinical Impression: GERD (gastroesophageal reflux disease) - Discharge Information Referrals: PCP,None [Primary Care Provider] - Forms: ED Department Discharge - My Orders Last 24 Hours: My Active Orders 02/09/18 20:31 DRUG SCREEN, URINE [URCHEM] Stat URINALYSIS W/MICROSCOPIC [UA W/MICROSCOPIC] [URIN] Stat - Assessment/Plan Last 24 Hours: My Active Orders 02/09/18 20:31 DRUG SCREEN, URINE [URCHEM] Stat URINALYSIS W/MICROSCOPIC [UA W/MICROSCOPIC] [URIN] Stat
[2018-02-09] MEDS ORDERED: Sodium Chloride 0.9% 1,000 ML IV ONE (20:58)
[2018-02-09] MEDS ORDERED: Famotidine 20 MG/2 ML SDV IVPUSH ONE (21:13)
[2018-02-09] MEDS ORDERED: Ketorolac 30 MG/ML SDV IVPUSH ONE (21:48)
[2018-02-09] MEDS ORDERED: Alum Hydrox/Mag Hydrox/Simeth 15 ML, Lidocaine 2% 5 ML PO ONE ×2 (22:57)
== END 2018-02-09 23:10 | disposition left against medical advice (07) ==
LOC: MW.ED 18:50
DX: K21.9 Gastro-esophageal reflux disease without esophagitis (principal); I10 Essential (primary) hypertension; J45.909 Unspecified asthma, uncomplicated; Z79.899 Other long term (current) drug therapy; Z88.2 Allergy status to sulfonamides; Z88.8 Allergy status to other drugs, medicaments and biological substances; Z88.0 Allergy status to penicillin; Z88.5 Allergy status to narcotic agent; Z91.040 Latex allergy status
CPT/HCPCS: 96361; 96374; 96375; 99284; A9270; J1885; J7040

== ENCOUNTER 2018-12-07 10:22 | Emergency (ER) | payer BC ==
[2018-12-07] MEDS ORDERED: Bacitracin Oint 1 GM U/D Packet TOP ONE ×2 (10:26→10:33)
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
[2018-12-07] MEDS ORDERED: Ketorolac 30 MG/ML SDV IVPUSH ONE (10:32)
[2018-12-07] MEDS ORDERED: Ondansetron 4 MG/2 ML SDV IVPUSH ONE (10:33)
[2018-12-07 19:18] VITALS: BP 99/68
== END 2018-12-07 12:57 | disposition home or self-care (01) ==
LOC: MW.ED 10:22
DX: T25.221A Burn of second degree of right foot, initial encounter (principal); T24.111A Burn of first degree of right thigh, initial encounter; I10 Essential (primary) hypertension; F41.9 Anxiety disorder, unspecified; Z91.09 Other allergy status, other than to drugs and biological substances; Z88.1 Allergy status to other antibiotic agents; Z88.0 Allergy status to penicillin; Z88.2 Allergy status to sulfonamides; Z88.5 Allergy status to narcotic agent; Z91.040 Latex allergy status; Z79.899 Other long term (current) drug therapy; X12.XXXA Contact with other hot fluids, initial encounter
CPT/HCPCS: 96374; 96375; 99283; J1885; J2405

== ENCOUNTER 2019-04-02 00:58 | Emergency (ER) | payer BC ==
[2019-04-02] MEDS ORDERED: LORazepam 2 MG/ML SDV IVPUSH ONE ×2 (01:00→01:52)
[2019-04-02] MEDS ORDERED: Sodium Chloride 0.9% 1,000 ML IV ONE (01:00)
--- NOTE | 2019-04-02 01:01 | EDM.PDOC ---
ED HPI GENERAL MEDICAL PROBLEM - General Stated Complaint: PT SPOKE TO NURSE Time Seen by Provider: 04/02/19 01:00 Source of Information: Reports: Patient - History of Present Illness INITIAL COMMENTS - FREE TEXT/NARRATIVE: HISTORY AND PHYSICAL: History of present illness: [Patient presents with anxiety/panic with several episodes of vomiting this evening, she has been out of Xanax for 4 days and presents as such Examination she is tender diffusely in her abdomen with focus in the right upper quadrant however CT and ultrasound are within normal limits no fever chills sweats no chest pain shortness breath headache dizziness palpitation no bowel or urine symptoms ] Review of systems: As per history of present illness and below otherwise all systems reviewed and negative. Past medical history: As per history of present illness and as reviewed below otherwise noncontributory. Surgical history: As per history of present illness and as reviewed below otherwise noncontributory. Social history: No reported history of drug or alcohol abuse. Family history: As per history of present illness and as reviewed below otherwise noncontributory. Physical exam: HEENT: Atraumatic, normocephalic, pupils reactive, negative for conjunctival pallor or scleral icterus, mucous membranes moist, throat clear, neck supple, nontender, trachea midline. Lungs: Clear to auscultation, breath sounds equal bilaterally, chest nontender. Heart: S1S2, regular, negative for clicks, rubs, or JVD. Abdomen: Soft, nondistenddiffuse tenderness on deep palpationtive for masses or hepatosplenomegaly. Negative for costovertebral tenderness. Pelvis: Stable nontender. Genitourinary: Deferred. Rectal: Deferred. Extremities: Atraumatic, negative for cords or calf pain. Neurovascular unremarkable. Neuro: Awake, alert, oriented. Cranial nerves II through XII unremarkable. Cerebellum unremarkable. Motor and sensory unremarkable throughout. Exam nonfocal. Diagnostics: [cBC CMP lipase UA ] EKG CT abdomen pelvis no contrast limited ultrasound Therapeutics: [ normal saline Ativan 2 mg IV Morphine 2 mg IV Morphine 1 mg IV 30 IV Toradol ] Patient is offered observation admission refused Impression: [ anxiety/panic improved Abdominal pain] Definitive disposition and diagnosis as appropriate pending reevaluation and review of above. back Pain Score (Numeric/FACES): 10 - Related Data Allergies Allergy/AdvReac Type Severity Reaction Status Date / Time adhesive Allergy Blisters Verified 04/02/19 01:12 ciprofloxacin [From Cipro] Allergy Cannot Verified 04/02/19 01:12 Remember Latex, Natural Rubber Allergy Blisters Verified 04/02/19 01:12 penicillin Allergy Hives Verified 04/02/19 01:12 Sulfa (Sulfonamide Allergy Rash Verified 04/02/19 01:12 Antibiotics) sulfamethoxazole Allergy Rash Verified 04/02/19 01:12 [From Septra] trimethoprim [From Septra] Allergy Rash Verified 04/02/19 01:12 codeine AdvReac unsure Verified 04/02/19 01:12 Home Meds: Home Meds oxyCODONE HCl [oxyCODONE] 30 mg PO Q6H PRN 05/12/15 [History] tiZANidine [Zanaflex] 2 tab PO ASDIRECTED PRN 12/14/17 [History] Labetalol HCl [Labetalol] 200 mg PO BID 02/05/18 [History] Past Medical History - Past Health History Medical/Surgical History: Denies Medical/Surgical History HEENT History: Reports: Allergic Rhinitis Cardiovascular History: Reports: Heart Murmur, Hypertension Other Cardiovascular History: HTN Respiratory History: Reports: Asthma Gastrointestinal History: Reports: Other (See Below) Other Gastrointestinal History: ulcer, occasional heartburn Genitourinary History: Reports: Other (See Below) Other Genitourinary History: kidney 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: Musculoskeletal History: Reports: Back Pain, Chronic, Fracture, Other (See Below ) Other Musculoskeletal History: Broken Back in December 2014; Neurological History: Reports: Migraines Psychiatric History: Reports: Anxiety Endocrine/Metabolic History: Reports: None Hematologic History: Reports: None Dermatologic History: Reports: None - Infectious Disease History Infectious Disease History: Reports: Chicken Pox - Past Surgical History Head Surgeries/Procedures: Reports: None HEENT Surgical History: Reports: Oral Surgery Other HEENT Surgeries/Procedures: multiple oral surgeries Cardiovascular Surgical History: Reports: None Social & Family History - Family History Family Medical History: Noncontributory - Caffeine Use Caffeine Use: Reports: None ED ROS GENERAL - Review of Systems Review Of Systems: See Below ED EXAM, GENERAL - Physical Exam Exam: See Below Course - Vital Signs Last Recorded V/S: Last Vital Signs Temp 97.4 F 04/02/19 04:35 Pulse 67 04/02/19 04:35 Resp 18 04/02/19 04:35 BP 173/92 H 04/02/19 04:35 Pulse Ox 100 04/02/19 04:35 - Orders/Labs/Meds Orders: Active Orders 24 hr Category Date Time Status EKG Documentation Completion [RC] STAT Care 04/02/19 01:00 Active Morphine Med 04/02/19 05:34 Once 1 mg IVPUSH ONETIME ONE Labs: Laboratory Tests 04/02/19 04/02/19 04/02/19 Range/Units 01:20 01:20 01:20 WBC 17.48 H (4.0-11.0) K/uL RBC 4.82 (4.30-5.90) M/uL Hgb 13.5 (12.0-16.0) g/dL Hct 39.5 (36.0-46.0) % MCV 82.0 (80.0-98.0) fL MCH 28.0 (27.0-32.0) pg MCHC 34.2 (31.0-37.0) g/dL RDW Std Deviation 44.1 (28.0-62.0) fl RDW Coeff of Reynaldo 15 (11.0-15.0) % Plt Count 425 H (150-400) K/uL MPV 10.00 (7.40-12.00) fL Neut % (Auto) 86.6 H (48.0-80.0) % Lymph % (Auto) 10.6 L (16.0-40.0) % [place] % (Auto) 2.6 (0.0-15.0) % Eos % (Auto) 0.0 (0.0-7.0) % Baso % (Auto) 0.2 (0.0-1.5) % Neut # (Auto) 15.1 H (1.4-5.7) K/uL Lymph # (Auto) 1.9 (0.6-2.4) K/uL [place] # (Auto) 0.5 (0.0-0.8) K/uL Eos # (Auto) 0.0 (0.0-0.7) K/uL Baso # (Auto) 0.0 (0.0-0.1) K/uL Sodium 135 L (136-145) mmol/L Potassium 4.3 (3.5-5.1) mmol/L Chloride 98 (98-107) mmol/L Carbon Dioxide 24.2 (21.0-32.0) mmol/L BUN 14 (7.0-18.0) mg/dL Creatinine 0.8 (0.6-1.0) mg/dL Est Cr Clr Drug Dosing 86.63 mL/min Estimated GFR (MDRD) > 60.0 ml/min Glucose 167 H (74-106) mg/dL Calcium 11.5 H (8.5-10.1) mg/dL Total Bilirubin 0.8 (0.2-1.0) mg/dL AST 24 (15-37) IU/L ALT 41 (14-63) IU/L Alkaline Phosphatase 108 (46-116) U/L Total Protein 9.5 H (6.4-8.2) g/dL Albumin 5.0 (3.4-5.0) g/dL Globulin 4.5 H (2.6-4.0) g/dL Albumin/Globulin Ratio 1.1 (0.9-1.6) Lipase 110 (73-393) U/L HCG, Quant mIU/mL Urine Color Urine Appearance Urine pH (5.0-8.0) Ur Specific Blythe (1.001-1.035) Urine Protein (NEGATIVE) mg/dL Urine Glucose (UA) (NEGATIVE) mg/dL Urine Ketones (NEGATIVE) mg/dL Urine Occult Blood (NEGATIVE) Urine Nitrite (NEGATIVE) Urine Bilirubin (NEGATIVE) Urine Urobilinogen (<2.0) EU/dL Ur Leukocyte Esterase (NEGATIVE) Urine RBC (0-2/HPF) Urine WBC (0-5/HPF) Ur Epithelial Cells (NONE-FEW) Urine Bacteria (NEGATIVE) Urine Opiates Screen (NEGATIVE) Ur Oxycodone Screen (NEGATIVE) Urine Methadone Screen (NEGATIVE) Ur Barbiturates Screen (NEGATIVE) Ur Phencyclidine Scrn (NEGATIVE) Ur Amphetamine Screen (NEGATIVE) U Methamphetamines Scrn (NEGATIVE) U Benzodiazepines Scrn (NEGATIVE) U Cocaine Metab Screen (NEGATIVE) U Marijuana (THC) Screen (NEGATIVE) Blood Type 04/02/19 04/02/19 04/02/19 Range/Units 01:21 01:21 02:20 WBC (4.0-11.0) K/uL RBC (4.30-5.90) M/uL Hgb (12.0-16.0) g/dL Hct (36.0-46.0) % MCV (80.0-98.0) fL MCH (27.0-32.0) pg MCHC (31.0-37.0) g/dL RDW Std Deviation (28.0-62.0) fl RDW Coeff of Reynaldo (11.0-15.0) % Plt Count (150-400) K/uL MPV (7.40-12.00) fL Neut % (Auto) (48.0-80.0) % Lymph % (Auto) (16.0-40.0) % [place] % (Auto) (0.0-15.0) % Eos % (Auto) (0.0-7.0) % Baso % (Auto) (0.0-1.5) % Neut # (Auto) (1.4-5.7) K/uL Lymph # (Auto) (0.6-2.4) K/uL [place] # (Auto) (0.0-0.8) K/uL Eos # (Auto) (0.0-0.7) K/uL Baso # (Auto) (0.0-0.1) K/uL Sodium (136-145) mmol/L Potassium (3.5-5.1) mmol/L Chloride (98-107) mmol/L Carbon Dioxide (21.0-32.0) mmol/L BUN (7.0-18.0) mg/dL Creatinine (0.6-1.0) mg/dL Est Cr Clr Drug Dosing mL/min Estimated GFR (MDRD) ml/min Glucose (74-106) mg/dL Calcium (8.5-10.1) mg/dL Total Bilirubin (0.2-1.0) mg/dL AST (15-37) IU/L ALT (14-63) IU/L Alkaline Phosphatase (46-116) U/L Total Protein (6.4-8.2) g/dL Albumin (3.4-5.0) g/dL Globulin (2.6-4.0) g/dL Albumin/Globulin Ratio (0.9-1.6) Lipase (73-393) U/L HCG, Quant 1.0 mIU/mL Urine Color YELLOW Urine Appearance CLEAR Urine pH 6.0 (5.0-8.0) Ur Specific B[place] >= 1.030 (1.001-1.035) Urine Protein 30 H (NEGATIVE) mg/dL Urine Glucose (UA) NEGATIVE (NEGATIVE) mg/dL Urine Ketones >=80 (NEGATIVE) mg/dL Urine Occult Blood NEGATIVE (NEGATIVE) Urine Nitrite NEGATIVE (NEGATIVE) Urine Bilirubin NEGATIVE (NEGATIVE) Urine Urobilinogen 0.2 (<2.0) EU/dL Ur Leukocyte Esterase NEGATIVE (NEGATIVE) Urine RBC 0-1 (0-2/HPF) Urine WBC 0-1 (0-5/HPF) Ur Epithelial Cells RARE (NONE-FEW) Urine Bacteria RARE (NEGATIVE) Urine Opiates Screen (NEGATIVE) Ur Oxycodone Screen (NEGATIVE) Urine Methadone Screen (NEGATIVE) Ur Barbiturates Screen (NEGATIVE) Ur Phencyclidine Scrn (NEGATIVE) Ur Amphetamine Screen (NEGATIVE) U Methamphetamines Scrn (NEGATIVE) U Benzodiazepines Scrn (NEGATIVE) U Cocaine Metab Screen (NEGATIVE) U Marijuana (THC) Screen (NEGATIVE) Blood Type O POSITIVE 04/02/19 Range/Units 02:20 WBC (4.0-11.0) K/uL RBC (4.30-5.90) M/uL Hgb (12.0-16.0) g/dL Hct (36.0-46.0) % MCV (80.0-98.0) fL MCH (27.0-32.0) pg MCHC (31.0-37.0) g/dL RDW Std Deviation (28.0-62.0) fl RDW Coeff of Reynaldo (11.0-15.0) % Plt Count (150-400) K/uL MPV (7.40-12.00) fL Neut % (Auto) (48.0-80.0) % Lymph % (Auto) (16.0-40.0) % [place] % (Auto) (0.0-15.0) % Eos % (Auto) (0.0-7.0) % Baso % (Auto) (0.0-1.5) % Neut # (Auto) (1.4-5.7) K/uL Lymph # (Auto) (0.6-2.4) K/uL [place] # (Auto) (0.0-0.8) K/uL Eos # (Auto) (0.0-0.7) K/uL Baso # (Auto) (0.0-0.1) K/uL Sodium (136-145) mmol/L Potassium (3.5-5.1) mmol/L Chloride (98-107) mmol/L Carbon Dioxide (21.0-32.0) mmol/L BUN (7.0-18.0) mg/dL Creatinine (0.6-1.0) mg/dL Est Cr Clr Drug Dosing mL/min Estimated GFR (MDRD) ml/min Glucose (74-106) mg/dL Calcium (8.5-10.1) mg/dL Total Bilirubin (0.2-1.0) mg/dL AST (15-37) IU/L ALT (14-63) IU/L Alkaline Phosphatase (46-116) U/L Total Protein (6.4-8.2) g/dL Albumin (3.4-5.0) g/dL Globulin (2.6-4.0) g/dL Albumin/Globulin Ratio (0.9-1.6) Lipase (73-393) U/L HCG, Quant mIU/mL Urine Color Urine Appearance Urine pH (5.0-8.0) Ur Specific B[place] (1.001-1.035) Urine Protein (NEGATIVE) mg/dL Urine Glucose (UA) (NEGATIVE) mg/dL Urine Ketones (NEGATIVE) mg/dL Urine Occult Blood (NEGATIVE) Urine Nitrite (NEGATIVE) Urine Bilirubin (NEGATIVE) Urine Urobilinogen (<2.0) EU/dL Ur Leukocyte Esterase (NEGATIVE) Urine RBC (0-2/HPF) Urine WBC (0-5/HPF) Ur Epithelial Cells (NONE-FEW) Urine Bacteria (NEGATIVE) Urine Opiates Screen POSITIVE (NEGATIVE) Ur Oxycodone Screen NEGATIVE (NEGATIVE) Urine Methadone Screen NEGATIVE (NEGATIVE) Ur Barbiturates Screen NEGATIVE (NEGATIVE) Ur Phencyclidine Scrn NEGATIVE (NEGATIVE) Ur Amphetamine Screen NEGATIVE (NEGATIVE) U Methamphetamines Scrn NEGATIVE (NEGATIVE) U Benzodiazepines Scrn NEGATIVE (NEGATIVE) U Cocaine Metab Screen NEGATIVE (NEGATIVE) U Marijuana (THC) Screen POSITIVE (NEGATIVE) Blood Type Meds: Medications Discontinued Medications Generic Name Dose Route Start Last Admin Trade Name Freq PRN Reason Stop Dose Admin Sodium Chloride 1,000 mls @ 999 mls/hr 04/02/19 01:00 04/02/19 01:26 Normal Saline IV 04/02/19 02:00 999 mls/hr STAT ONE Administration Iopamidol 100 ml 04/02/19 02:13 [id number] (76%) IVPUSH 04/02/19 02:14 ONETIME ONE Ketorolac Tromethamine 30 mg 04/02/19 01:53 04/02/19 03:01 Toradol IVPUSH 04/02/19 01:54 30 mg ONETIME ONE Administration Lorazepam 1 mg 04/02/19 01:00 04/02/19 01:26 Ativan IVPUSH 04/02/19 01:01 1 mg ONETIME ONE Administration Lorazepam 1 mg 04/02/19 01:52 04/02/19 02:03 Ativan IVPUSH 04/02/19 01:53 1 mg ONETIME ONE Administration Morphine Sulfate 2 mg 04/02/19 04:20 04/02/19 04:25 Morphine IVPUSH 04/02/19 04:21 2 mg ONETIME ONE Administration Ondansetron HCl 8 mg 04/02/19 01:56 04/02/19 02:01 Zofran IVPUSH 04/02/19 01:57 8 mg ONETIME ONE Administration Departure - Departure Time of Disposition: 05:37 Disposition: Home, Self-Care 01 Condition: Good Clinical Impression: Anxiety, Abdominal pain - Discharge Information Additional Instructions: Continue medications as prescribed Prescription for Xanax provided as directed Return if symptoms persist or worsen ER referral for general surgery for consideration of HIDA scan testing [facility] - General Surgery [address], [address] [place] [address] The following information is given to patients seen in the emergency department who are being discharged to home. This information is to outline your options for follow-up care. We provide all patients seen in our emergency department with a follow-up referral. The need for follow-up, as well as the timing and circumstances, are variable depending upon the specifics of your emergency department visit. If you don't have a primary care physician on staff, we will provide you with a referral. We always advise you to contact your personal physician following an emergency department visit to inform them of the circumstance of the visit and for follow-up with them and/or the need for any referrals to a consulting specialist. The emergency department will also refer you to a specialist when appropriate. This referral assures that you have the opportunity for follow-up care with a specialist. All of these measure are taken in an effort to provide you with optimal care, which includes your follow-up. Under all circumstances we always encourage you to contact your private physician who remains a resource for coordinating your care. When calling for follow-up care, please make the office aware that this follow-up is from your recent emergency room visit. If for any reason you are refused follow-up, please contact the [facility] emergency department at and asked to speak to the emergency department charge nurse. - My Orders Last 24 Hours: My Active Orders 04/02/19 01:00 EKG Documentation Completion [RC] STAT 04/02/19 05:34 Morphine 1 mg IVPUSH ONETIME ONE - Assessment/Plan Last 24 Hours: My Active Orders 04/02/19 01:00 EKG Documentation Completion [RC] STAT 04/02/19 05:34 Morphine 1 mg IVPUSH ONETIME ONE
[2019-04-02] MEDS ORDERED: Ketorolac 30 MG/ML SDV IVPUSH ONE (01:53)
[2019-04-02] MEDS: Ondansetron 4 MG/2 ML SDV IVPUSH ONE (02:01)
[2019-04-02 02:03] LABS: CHLORIDE,CL 98 mmol/L (98-107); SODIUM,NA 135 mmol/L (136-145)
[2019-04-02] MEDS ORDERED: Iopamidol 755 Mg/ML 100 ML Bottle IVPUSH ONE (02:13)
--- NOTE | 2019-04-02 03:25 | CT ---
INDICATION: Abdominal pain TECHNIQUE: CT abdomen and pelvis without contrast. COMPARISON: None. FINDINGS: Lower chest: Unremarkable. Liver: Normal in size and attenuation. No masses. Gallbladder and bile ducts: Contracted gallbladder with mild apparent gallbladder wall thickening without pericholecystic inflammation. Pancreas: Unremarkable. No mass or inflammation. Spleen: Normal in size. No masses. Adrenal glands: Normal in size. No nodules. Kidneys: Normal in size. No masses, stones, or hydronephrosis. GI tract: No dilated loops of large or small intestine. Unremarkable appendix. Vasculature: Unremarkable. Pelvis: Bladder unremarkable. Uterus anteverted. Trace free fluid pelvic cul-de-sac, within physiologic limits. Bones: Unremarkable for age. IMPRESSION: 1. No nephrolithiasis or hydronephrosis. 2. No dilated bowel or localizing inflammation. 3. Contracted gallbladder with mild gallbladder wall thickening. This is probably due to the contracted state of the gallbladder although if there is pain localized to the right upper quadrant, ultrasound may have improved characterization. Please note that all CT scans at this facility use dose modulation, iterative reconstruction, and/or weight-based dosing when appropriate to reduce radiation dose to as low as reasonably achievable. Dictated by Reza Marks MD @ Apr 02 2019 3:15AM Signed by Dr. Reza Marks @ Apr 02 2019 3:23AM
[2019-04-02] MEDS ORDERED: Morphine 2 MG/ML Syringe IVPUSH ONE ×2 (04:20→05:34)
[2019-04-02 04:37] VITALS: BP 173/92
--- NOTE | 2019-04-02 04:53 | US ---
INDICATION: Right upper quadrant abdomen pain TECHNIQUE: Ultrasound abdomen limited. Sonographic images of the right upper quadrant were obtained using aviles-scale and color Doppler images. COMPARISON: Abdomen and pelvis CT 04/02/2019 FINDINGS: Liver: Normal in size and echotexture. No masses. No intrahepatic biliary dilatation. Gallbladder: Contracted without evidence of cholelithiasis or gallbladder wall thickening. Common bile duct: 2 mm. Pancreas: Partially obscured by bowel gas without discrete lesion. Right kidney: Normal in size. Normal echotexture and cortex. No masses, stones, or hydronephrosis. Vasculature: Proximal abdominal aorta and IVC are normal. IMPRESSION: 1. Contracted gallbladder without evidence of cholelithiasis or cholecystitis. 2. Essentially unremarkable right upper quadrant ultrasound. Dictated by Reza Marks MD @ Apr 02 2019 4:49AM Signed by Dr. Reza Marks @ Apr 02 2019 4:51AM
== END 2019-04-02 05:55 | disposition home or self-care (01) ==
LOC: MW.ED 00:58
DX: F41.9 Anxiety disorder, unspecified (principal); R10.9 Unspecified abdominal pain; I10 Essential (primary) hypertension; J45.909 Unspecified asthma, uncomplicated; Z88.8 Allergy status to other drugs, medicaments and biological substances; Z79.899 Other long term (current) drug therapy
CPT/HCPCS: 36415; 74176; 76705; 80053; 80305; 81001; 83690; 84702; 85025; 86900; 86901; 93005; 96361; 96374; 96375; 96376; 99284; J1885; J2060; J2270; J2405; J7040

== ENCOUNTER 2019-11-19 12:43 | Emergency (ER) | payer BC ==
--- NOTE | 2019-11-19 12:54 | EDM.PDOC ---
ED HPI GENERAL MEDICAL PROBLEM - General Chief Complaint: Laceration Stated Complaint: CUT FINGER Time Seen by Provider: 11/19/19 12:53 Source of Information: Reports: Patient History Limitations: Reports: No Limitations - History of Present Illness INITIAL COMMENTS - FREE TEXT/NARRATIVE: HISTORY AND PHYSICAL: History of present illness: Patient is a 39-year-old female presents to the ED with complaint of laceration. She states she "cut the end off" of her right distal pointer finger on a knife this morning while doing the dishes. She is not UTD on tetanus. Review of systems: As per history of present illness and below otherwise all systems reviewed and negative. Past medical history: As per history of present illness and as reviewed below otherwise noncontributory. Surgical history: As per history of present illness and as reviewed below otherwise noncontributory. Social history: No reported history of drug or alcohol abuse. Family history: As per history of present illness and as reviewed below otherwise noncontributory. Physical exam: General: Patient sitting comfortably in no acute distress and nontoxic appearing HEENT: Atraumatic, normocephalic, pupils reactive, negative for conjunctival pallor or scleral icterus, mucous membranes moist, throat clear, neck supple, nontender, trachea midline. No meningeal signs. Lungs: Clear to auscultation, breath sounds equal bilaterally, chest nontender. Heart: S1S2, regular, negative for clicks, rubs, or overt murmur. Abdomen: Soft, nondistended, nontender. Negative for masses or hepatosplenomegaly. Negative for costovertebral tenderness. No rigidity, rebound , guarding. Pelvis: Stable nontender. Genitourinary: Deferred. Rectal: Deferred. Extremities: There is a small 0.5cm laceration to the distal pad of the right pointer finger. negative for cords or calf pain. Neurovascular unremarkable. Neuro: Awake, alert, oriented. Cranial nerves II through XII unremarkable. Cerebellum unremarkable. Motor and sensory unremarkable throughout. Exam nonfocal. Notes: Diagnostics: none Therapeutics: Tdap laceration repair - see procedure note Prescriptions: none Impression: Laceration Plan: Keep the area clean and dry as instructed Follow-up in 7 to 10 days for suture removal Return to ED as needed as discussed Definitive disposition and diagnosis as appropriate pending reevaluation and review of above. - Related Data Allergies Allergy/AdvReac Type Severity Reaction Status Date / Time adhesive Allergy Blisters Verified 04/02/19 01:12 ciprofloxacin [From Cipro] Allergy Cannot Verified 04/02/19 01:12 Remember Latex, Natural Rubber Allergy Blisters Verified 04/02/19 01:12 penicillin Allergy Hives Verified 04/02/19 01:12 Sulfa (Sulfonamide Allergy Rash Verified 04/02/19 01:12 Antibiotics) sulfamethoxazole Allergy Rash Verified 04/02/19 01:12 [From Septra] trimethoprim [From Septra] Allergy Rash Verified 04/02/19 01:12 codeine AdvReac unsure Verified 04/02/19 01:12 Home Meds: Home Meds oxyCODONE HCl [oxyCODONE] 30 mg PO Q6H PRN 05/12/15 [History] tiZANidine [Zanaflex] 2 tab PO ASDIRECTED PRN 12/14/17 [History] Labetalol HCl [Labetalol] 200 mg PO BID 02/05/18 [History] Past Medical History - Past Health History Medical/Surgical History: Denies Medical/Surgical History HEENT History: Reports: Allergic Rhinitis Cardiovascular History: Reports: Heart Murmur, Hypertension Other Cardiovascular History: HTN Respiratory History: Reports: Asthma Gastrointestinal History: Reports: Other (See Below) Other Gastrointestinal History: ulcer, occasional heartburn Genitourinary History: Reports: Other (See Below) Other Genitourinary History: kidney infections 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: Musculoskeletal History: Reports: Back Pain, Chronic, Fracture, Other (See Below ) Other Musculoskeletal History: Broken Back in December 2014; Neurological History: Reports: Migraines Psychiatric History: Reports: Anxiety Endocrine/Metabolic History: Reports: None Hematologic History: Reports: None Dermatologic History: Reports: None - Infectious Disease History Infectious Disease History: Reports: Chicken Pox - Past Surgical History Head Surgeries/Procedures: Reports: None HEENT Surgical History: Reports: Oral Surgery Other HEENT Surgeries/Procedures: multiple oral surgeries Cardiovascular Surgical History: Reports: None Social & Family History - Family History Family Medical History: Noncontributory - Caffeine Use Caffeine Use: Reports: None ED ROS GENERAL - Review of Systems Review Of Systems: Comprehensive ROS is negative, except as noted in HPI. ED EXAM, SKIN/RASH Exam: See Below (see dictation) ED SKIN PROCEDURES - Laceration/Wound Repair Right Digit - 2nd (Index) Appearance: Superficial, Subcutaneous, Linear, Clean Distal NVT: Neuro & Vascular Intact, No Tendon Injury Anesthetic Type: Digital Local Anesthesia - Lidocaine (Xylocaine): 1% Plain Local Anesthetic Volume: 5cc Skin Prep: Chlorhexidine (Hibiciens), Saline Saline Irrigation (cc's): 250 Exploration/Debridement/Repair: Wound Explored, In a Bloodless Field, Explored to Base, No Foreign Material Found Closed with: Sutures Lac/Wound length In cm: 0.5 Suture Size: 5-0 # of Sutures: 3 Course - Vital Signs Last Recorded V/S: Last Vital Signs Temp 98 F 11/19/19 12:53 Pulse 118 H 11/19/19 12:53 Resp 20 11/19/19 12:53 BP 127/92 H 11/19/19 12:53 Pulse Ox 95 11/19/19 12:53 - Orders/Labs/Meds Orders: Active Orders 24 hr Category Date Time Status Vaccines to be Administered [RC] PER UNIT ROUTINE Care 11/19/19 13:01 Active Meds: Medications Discontinued Medications Generic Name Dose Route Start Last Admin Trade Name Frecassy PRN Reason Stop Dose Admin Diphtheria/Tetanus/Acell Pertussis 0.5 ml 11/19/19 13:01 11/19/19 13:16 Adacel IM 11/19/19 13:02 0.5 ml .ONCE ONE Administration Lidocaine HCl 5 ml 11/19/19 13:01 11/19/19 13:23 Xylocaine-Mpf 1% INJECT 11/19/19 13:02 5 ml ONETIME ONE Administration Lidocaine HCl Confirm 11/19/19 13:30 Xylocaine-Mpf 1% Administered 11/19/19 13:31 Dose 5 ml .ROUTE .STK-MED ONE Departure - Departure Time of Disposition: 13:44 Disposition: Home, Self-Care 01 Condition: Good Clinical Impression: Laceration - Discharge Information Instructions: Laceration Care, Adult, [id number] Referrals: Rainer Winn DO [Primary Care Provider] - Forms: ED Department Discharge Additional Instructions: The following information is given to patients seen in the emergency department who are being discharged to home. This information is to outline your options for follow-up care. We provide all patients seen in our emergency department with a follow-up referral. The need for follow-up, as well as the timing and circumstances, are variable depending upon the specifics of your emergency department visit. If you don't have a primary care physician on staff, we will provide you with a referral. We always advise you to contact your personal physician following an emergency department visit to inform them of the circumstance of the visit and for follow-up with them and/or the need for any referrals to a consulting specialist. The emergency department will also refer you to a specialist when appropriate. This referral assures that you have the opportunity for follow-up care with a specialist. All of these measure are taken in an effort to provide you with optimal care, which includes your follow-up. Under all circumstances we always encourage you to contact your private physician who remains a resource for coordinating your care. When calling for follow-up care, please make the office aware that this follow-up is from your recent emergency room visit. If for any reason you are refused follow-up, please contact the [facility] Emergency Department at and asked to speak to the emergency department charge nurse. [facility] [address] [place], [place] [id number] [place] [address] Keep the area clean and dry as instructed Follow-up in 7 to 10 days for suture removal Return to ED as needed as discussed Sepsis Event Note - Focused Exam Vital Signs: Vital Signs Temp Pulse Resp BP Pulse Ox 11/19/19 12:53 98 F 118 H 20 127/92 H 95 Date Exam was Performed: 11/19/19 Time Exam was Performed: 14:17 - My Orders Last 24 Hours: My Active Orders 11/19/19 13:01 Vaccines to be Administered [RC] PER UNIT ROUTINE - Assessment/Plan Last 24 Hours: My Active Orders 11/19/19 13:01 Vaccines to be Administered [RC] PER UNIT ROUTINE
[2019-11-19 12:58] VITALS: BP 127/92; PULSE 118
[2019-11-19] MEDS ORDERED: Diphtheria,Pertussis(Acell),Tetanus Vaccine 0.5 ML Syringe IM ONE (13:01)
== END 2019-11-19 13:47 | disposition home or self-care (01) ==
LOC: MW.ED 12:43
DX: S61.210A Laceration without foreign body of right index finger without damage to nail, initial encounter (principal); Z23 Encounter for immunization; Z88.1 Allergy status to other antibiotic agents; Z91.040 Latex allergy status; Z88.0 Allergy status to penicillin; W26.0XXA Contact with knife, initial encounter
CPT/HCPCS: 12001; 90471; 90715; 99282; J2001

== ENCOUNTER 2019-12-01 19:43 | Emergency (ER) | payer BC | END 2019-12-01 20:00 | disposition left against medical advice (07) | LOC: MW.ED 19:43 | DX: Z53.21 Procedure and treatment not carried out due to patient leaving prior to being seen by health care provider (principal) ==

== ENCOUNTER 2020-12-03 20:15 | Emergency (ER) | payer BC ==
--- NOTE | 2020-12-03 20:24 | EDM.PDOC ---
ED HPI GENERAL MEDICAL PROBLEM - General Chief Complaint: General Stated Complaint: POSSIBLE PIECE OF TAMPSON STUCK Time Seen by Provider: 12/03/20 20:17 Source of Information: Reports: Patient History Limitations: Reports: No Limitations - History of Present Illness INITIAL COMMENTS - FREE TEXT/NARRATIVE: HISTORY AND PHYSICAL: History of Present illness: Patient is a 40-year-old female who presents to the emergency room with complaints of possible tampon left in about 36 hours ago. She is not having any pain or cramping. She states she is still having her normal menstrual bleeding. Became worried when she consulted a nurse call and was told to come in to ensure the partial tampon was no longer in place. Patient denies any fever, chills, headache, change in vision, syncope or near syncope. Denies any chest pain, back pain, shortness of breath or cough. Denies any abdominal pain, nausea, vomiting, diarrhea, constipation or dysuria. Patient has been eating and drinking appropriately. Review of systems: As per history of present illness and below otherwise all systems reviewed and negative. Past medical history: As per history of present illness and as reviewed below otherwise noncontributory. Surgical history: As per history of present illness and as reviewed below otherwise noncontributory. Social history: See social history for further information Family history: As per history of present illness and as reviewed below otherwise noncontributory. Physical exam: General: Well developed and well nourished. Alert and orientated x 3. Nontoxic in appearance and in no acute distress. Vital signs are stable and have been reviewed by me. Nursing notes were reviewed. HEENT: Atraumatic, normocephalic, pupils equal and reactive bilaterally, neg ative for conjunctival pallor or scleral icterus, mucous membranes moist, neck supple, nontender, trachea midline. No drooling or trismus noted. No meningeal signs. No hot potato voice noted. Lungs: Clear to auscultation bilaterally. No wheezes, rales, or rhonchi. Chest nontender. Normal work of breathing, no accessory muscles used. Heart: S1S2, regular rate and rhythm without overt murmur, gallops, or rubs. No JVD. No peripheral edema Abdomen: Soft, nondistended, nontender. Normoactive bowel sounds. Negative for masses or costovertebral tenderness. Genitourinary/Rectal: Vaginal exam: No s/s of infection noted. No abnormal vaginal discharge noted. No foul odor noted. Retained tampon retrieved. Patient tolerated vaginal exam well. Skin: Intact, warm, dry. No lesions or rashes noted. Hematologic: No petechiae or purpra. Mucosa appropriate color and normal nail bed color and refill. Extremities: Atraumatic, moves all extremities per self without difficulty or deficits, negative for cords or calf pain. Neurovascular unremarkable. Neuro: Awake, alert, oriented. Cranial nerves II through XII unremarkable. Cerebellum unremarkable. Motor and sensory unremarkable throughout. Exam nonfo andrez. Psychiatric: Mood and affect are appropriate. Normal thought process. Answering questions appropriately. Notes: *This patient was seen and evaluated during the 2019 SARS-CoV-2 novel coronavirus pandemic period. Community viral transmission is ongoing at time of this encounter and the emergency department is operating under pandemic response procedures. The patient is agreeable with the plan of a vaginal exam. Retained tampon removed during vaginal exam. No s/s of infection noted. No abnormal vaginal discharge noted. No foul odor noted. Patient tolerated vaginal exam well. I have talked with the patient about today's findings, in addition to providing specific details for plan of care. Reassessment at the time of disposition demonstrates that the patient is in no acute distress. The patient is stable for discharge, counseling was provided and we discussed in great detail signs and symptoms that would prompt them to return to the Emergency Department. Medication, follow up and supportive care measures were reviewed and discussed. Voices understanding and is agreeable to plan of care. Denies any further questions or concerns at this time. Diagnostics: Vaginal exam Impression: Retained Tampon Plan: 1. You were evaluated today on an emergent basis. Your retained tampon was removed. If you notice any signs of infection such as foul odor or abnormal vaginal discharge return to the ED or follow up with your primary care provider. 2. You can alternate Tylenol and ibuprofen as needed for pain and fever management. 3. We encourage you to follow up with your primary care provider and/or recommended specialist in the next few days for re-evaluation and further care/management. 4. If your symptoms should worsen, new symptoms develop or any of the signs and symptoms we discussed should arise please return to the emergency room or call 911 (if needed). Definitive disposition and diagnosis as appropriate pending reevaluation and review of above. - Related Data Allergies Allergy/AdvReac Type Severity Reaction Status Date / Time adhesive Allergy Blisters Verified 12/03/20 20:30 ciprofloxacin [From Cipro] Allergy Cannot Verified 12/03/20 20:30 Remember Latex, Natural Rubber Allergy Blisters Verified 12/03/20 20:30 penicillin Allergy Hives Verified 12/03/20 20:30 Sulfa (Sulfonamide Allergy Rash Verified 12/03/20 20:30 Antibiotics) sulfamethoxazole Allergy Rash Verified 12/03/20 20:30 [From Septra] trimethoprim [From Septra] Allergy Rash Verified 12/03/20 20:30 codeine AdvReac unsure Verified 12/03/20 20:30 Home Meds: Home Meds oxyCODONE HCl [oxyCODONE] 30 mg PO Q6H PRN 05/12/15 [History] tiZANidine [Zanaflex] 2 tab PO ASDIRECTED PRN 12/14/17 [History] Labetalol HCl [Labetalol] 200 mg PO BID 02/05/18 [History] Past Medical History - Past Health History Medical/Surgical History: Denies Medical/Surgical History HEENT History: Reports: Allergic Rhinitis Cardiovascular History: Reports: Heart Murmur, Hypertension Other Cardiovascular History: HTN Respiratory History: Reports: Asthma Gastrointestinal History: Reports: Other (See Below) Other Gastrointestinal History: ulcer, occasional heartburn Genitourinary History: Reports: Other (See Below) Other Genitourinary History: kidney infections in 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: Musculoskeletal History: Reports: Back Pain, Chronic, Fracture, Other (See Below) Other Musculoskeletal History: Broken Back in December 2014; Neurological History: Reports: Migraines Psychiatric History: Reports: Anxiety Endocrine/Metabolic History: Reports: None Hematologic History: Reports: None Dermatologic History: Reports: None - Infectious Disease History Infectious Disease History: Reports: Chicken Pox - Past Surgical History Head Surgeries/Procedures: Reports: None HEENT Surgical History: Reports: Oral Surgery Other HEENT Surgeries/Procedures: multiple oral surgeries Cardiovascular Surgical History: Reports: None Social & Family History - Family History Family Medical History: No Pertinent Family History - Caffeine Use Caffeine Use: Reports: None ED ROS GENERAL - Review of Systems Review Of Systems: Comprehensive ROS is negative, except as noted in HPI. ED EXAM, GENERAL - Physical Exam Exam: See Below (See dictation) Course - Vital Signs Last Recorded V/S: Last Vital Signs Temp 98.1 F 12/03/20 20:30 Pulse 90 12/03/20 20:30 Resp 18 12/03/20 20:30 BP 148/92 H 12/03/20 20:30 Pulse Ox 98 12/03/20 20:30 Departure - Departure Time of Disposition: 20:56 Disposition: Home, Self-Care 01 Condition: Good Clinical Impression: Retained tampon Qualifiers: Encounter type: initial encounter Qualified Code(s): T19.2XXA - Foreign body in vulva and vagina, initial encounter - Discharge Information *PRESCRIPTION DRUG MONITORING PROGRAM REVIEWED*: Not Applicable *COPY OF PRESCRIPTION DRUG MONITORING REPORT IN PATIENT TYLER: Not Applicable Instructions: Vaginal Foreign Body, [id number] Referrals: PCP,Not In Area [Primary Care Provider] - Forms: ED Department Discharge Additional Instructions: The following information is given to patients seen in the emergency department who are being discharged to home. This information is to outline your options for follow-up care. We provide all patients seen in our emergency department with a follow-up referral. The need for follow-up, as well as the timing and circumstances, are variable depending upon the specifics of your emergency department visit. If you don't have a primary care physician on staff, we will provide you with a referral. We always advise you to contact your personal physician following an emergency department visit to inform them of the circumstance of the visit and for follow-up with them and/or the need for any referrals to a consulting specialist. The emergency department will also refer you to a specialist when appropriate. This referral assures that you have the opportunity for follow-up care with a specialist. All of these measure are taken in an effort to provide you with opt imal care, which includes your follow-up. Under all circumstances we always encourage you to contact your private physician who remains a resource for coordinating your care. When calling for follow-up care, please make the office aware that this follow-up is from your recent emergency room visit. If for any reason you are refused follow-up, please contact the [facility] Emergency Department at and asked to speak to the emergency department charge nurse. [facility] - Primary Care [address] [place] [id number] [facility] [address] [place] [address] Plan: 1. You were evaluated today on an emergent basis. Your retained tampon was removed. If you notice any signs of infection such as foul odor or abnormal vaginal discharge return to the ED or follow up with your primary care provider. 2. You can alternate Tylenol and ibuprofen as needed for pain and fever management. 3. We encourage you to follow up with your primary care provider and/or recommended specialist in the next few days for re-evaluation and further care/management. 4. If your symptoms should worsen, new symptoms develop or any of the signs and symptoms we discussed should arise please return to the emergency room or call 911 (if needed). Sepsis Event Note (ED) - Focused Exam Vital Signs: Vital Signs Temp Pulse Resp BP Pulse Ox 12/03/20 20:30 98.1 F 90 18 148/92 H 98
[2020-12-03 20:34] VITALS: BP 148/92; PULSE 90
== END 2020-12-03 21:08 | disposition home or self-care (01) ==
LOC: MW.ED 20:15
DX: T19.2XXA Foreign body in vulva and vagina, initial encounter (principal); I10 Essential (primary) hypertension; J45.909 Unspecified asthma, uncomplicated; Z91.048 Other nonmedicinal substance allergy status; Z88.1 Allergy status to other antibiotic agents; Z91.040 Latex allergy status; Z88.0 Allergy status to penicillin; Z88.2 Allergy status to sulfonamides; Z88.5 Allergy status to narcotic agent; Z79.899 Other long term (current) drug therapy
CPT/HCPCS: 99283

== ENCOUNTER 2021-03-16 20:07 | Emergency (ER) | payer BC ==
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
== END 2021-03-16 20:15 | disposition left against medical advice (07) ==
LOC: MW.ED 20:07
DX: F41.9 Anxiety disorder, unspecified (principal); R45.1 Restlessness and agitation; I10 Essential (primary) hypertension; Z88.0 Allergy status to penicillin; Z88.2 Allergy status to sulfonamides; Z91.040 Latex allergy status; Z88.5 Allergy status to narcotic agent; Z88.1 Allergy status to other antibiotic agents; Z91.048 Other nonmedicinal substance allergy status
CPT/HCPCS: 99283; 99284

== ENCOUNTER 2021-06-01 04:35 | Emergency (ER) | payer BC ==
[2021-06-01] MEDS ORDERED: Ketorolac 30 MG/ML SDV IVPUSH ONE (05:03)
--- NOTE | 2021-06-01 05:07 | EDM.PDOC ---
<Sal Kemp - Last Filed: 06/01/21 06:43> ED HPI GENERAL MEDICAL PROBLEM - General Chief Complaint: Abdominal Pain Stated Complaint: PAIN IN RIGHT SIDE Time Seen by Provider: 06/01/21 04:55 - History of Present Illness INITIAL COMMENTS - FREE TEXT/NARRATIVE: 40-year-old female presents the emergency department complaining of left lower abdominal pain. She states that it woke her up around 4 AM with sudden onset of pain. Moderate pain. Radiated to her left flank. Minor vomiting. No diarrhea. No pain with urination. No blood in the urine. No history of kidney stones. Patient denies any fever. She started her period there has been no abnormal vaginal bleeding (pt is on period presently). No vaginal discharge. Patient denies any bowel or bladder dysfunction or leg weakness. No history of cancer or IV drug use. Patient states that she did have a broken vertebrae previously in the back but this has been longstanding. She states it feels like when she had her ovarian cyst burst in the past. No exacerbating or alleviating factors Left Lower Abdomen Pain Score (Numeric/FACES): 8 - Related Data Allergies Allergy/AdvReac Type Severity Reaction Status Date / Time adhesive Allergy Blisters Verified 06/01/21 04:52 ciprofloxacin [From Cipro] Allergy Cannot Verified 06/01/21 04:52 Remember Latex, Natural Rubber Allergy Blisters Verified 06/01/21 04:52 penicillin Allergy Hives Verified 06/01/21 04:52 Sulfa (Sulfonamide Allergy Rash Verified 06/01/21 04:52 Antibiotics) sulfamethoxazole Allergy Rash Verified 06/01/21 04:52 [From Septra] trimethoprim [From Septra] Allergy Rash Verified 06/01/21 04:52 codeine AdvReac unsure Verified 06/01/21 04:52 Home Meds: Home Meds oxyCODONE HCl [oxyCODONE] 30 mg PO Q6H PRN 05/12/15 [History] tiZANidine [Zanaflex] 2 tab PO ASDIRECTED PRN 12/14/17 [History] Labetalol HCl [Labetalol] 200 mg PO BID 02/05/18 [History] Cyclobenzaprine [Flexeril] 10 mg PO BID 06/01/21 [History] Methylphenidate HCl [Methylphenidate ER] 10 mg PO BID 06/01/21 [History] Morphine [MS Contin] 30 mg PO BID 06/01/21 [History] diazePAM [Valium] 5 mg PO Q6H PRN 06/01/21 [History] Past Medical History - Past Health History Medical/Surgical History: Denies Medical/Surgical History HEENT History: Reports: Allergic Rhinitis Cardiovascular History: Reports: Heart Murmur, Hypertension Other Cardiovascular History: HTN Respiratory History: Reports: Asthma Gastrointestinal History: Reports: Other (See Below) Other Gastrointestinal History: ulcer, occasional heartburn Genitourinary History: Reports: Other (See Below) Other Genitourinary History: 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: Reports: Musculoskeletal History: Reports: Back Pain, Chronic, Fracture, Other (See Below) Other Musculoskeletal History: Broken Back in December 2014; Neurological History: Reports: Migraines Psychiatric History: Reports: Anxiety Endocrine/Metabolic History: Reports: None Insulin Pump Model and Coil Strapper: None Hematologic History: Reports: None Immunologic History: Reports: None Oncologic (Cancer) History: Reports: None Dermatologic History: Reports: None - Infectious Disease History Infectious Disease History: Reports: Chicken Pox - Past Surgical History Head Surgeries/Procedures: Reports: None HEENT Surgical History: Reports: Oral Surgery Other HEENT Surgeries/Procedures: multiple oral surgeries Cardiovascular Surgical History: Reports: None GI Surgical History: Reports: None Neurological Surgical History: Reports: None Musculoskeletal Surgical History: Reports: None Social & Family History - Family History Family Medical History: No Pertinent Family History - Tobacco Use Tobacco Use Status *Q: Never Tobacco User Second Hand Smoke Exposure: No - Caffeine Use Caffeine Use: Reports: Coffee, Soda - Recreational Drug Use Recreational Drug Use: Yes Drug Use in Last 12 Months: Yes Recreational Drug Type: Reports: Marijuana/Hashish ED ROS GENERAL - Review of Systems Constitutional: Denies: Fever Respiratory: Denies: Shortness of Breath Cardiovascular: Denies: Chest Pain GI/Abdominal: Reports: Abdominal Pain : Reports: Flank Pain. Denies: Dysuria Musculoskeletal: Reports: Other (back pain) Skin: Denies: Rash Neurological: Denies: Numbness, Weakness Psychiatric: Reports: Anxiety Hematologic/Lymphatic: Denies: Anemia ED EXAM, GENERAL - Physical Exam Exam: See Below Free Text/Narrative:: CONSTITUTIONAL: well appearing in no acute distress SKIN: Warm, dry, and intact without rash HENT: Normocephalic, atraumatic, PULMONARY: clear to ausculation bilaterally. No rales, rhonchi, wheezing CARDIOVASCULAR: regular rate, No murmur, rubs, or gallops GASTROINTESTINAL: soft, nondistended. Patient points to the left lower quadrant where the pain is but there is no marked reproducible tenderness. No left flank tenderness. NEUROLOGIC: normal speech, II-XII intact. light touch/5/5 power equal and symmetric in upper and lower extremities without deficit MUSCULOSKELETAL: no gross deformities, atraumatic PSYCHIATRIC: normal mood and affect Course - Vital Signs Text/Narrative:: Differential diagnosis: Diverticulitis, kidney stone, pyelonephritis, ovarian cyst, ovarian torsion, radiculopathy, other Patient presents with abdominal pain. Imaging studies are pending. TERRENCE Garcia 7am Departure - Departure Disposition: Home, Self-Care 01 Clinical Impression: Enteritis, Abdominal pain - Discharge Information Instructions: Abdominal Pain, Adult Forms: ED Department Discharge Additional Instructions: Your abdominal pain is most likely due to the processed sugar and alcohol that you had last night. Your lab work was good and the CT scan and ultrasound did not show any severe abnormal process in your abdomen or pelvis. The imaging was consistent with constipation but given that you are on the cleanse and having regular bowel movements I would not call it constipation. However, I do think the reintroduction of the processed sugar and alcohol is taxing your intestines and creating a noninfectious enteritis. This should be transitory and improve over the next 12 to 24 hours. If you develop a fever vomiting or any other new symptoms that concern you please call your doctor or return to the ER. The following information is given to patients seen in the emergency department who are being discharged to home. This information is to outline your options for follow-up care. We provide all patients seen in our emergency department with a follow-up referral. The need for follow-up, as well as the timing and circumstances, are variable depending upon the specifics of your emergency department visit. If you don't have a primary care physician on staff, we will provide you with a referral. We always advise you to contact your personal physician following an emergency department visit to inform them of the circumstance of the visit and for follow-up with them and/or the need for any referrals to a consulting specialist. The emergency department will also refer you to a specialist when appropriate. This referral assures that you have the opportunity for follow-up care with a specialist. All of these measure are taken in an effort to provide you with optimal care, which includes your follow-up. Under all circumstances we always encourage you to contact your private physician who remains a resource for coordinating your care. When calling for follow-up care, please make the office aware that this follow-up is from your recent emergency room visit. If for any reason you are refused follow-up, please contact the [facility] Emergency Department at and asked to speak to the emergency department charge nurse. <Yomi Garcia - Last Filed: 06/01/21 10:04> ED ROS GENERAL - Review of Systems Review Of Systems: See Below Course - Vital Signs Last Recorded V/S: Last Vital Signs Temp 97.4 F 06/01/21 08:14 Pulse 76 06/01/21 08:14 Resp 16 06/01/21 08:14 BP 120/69 06/01/21 08:14 Pulse Ox 96 06/01/21 08:14 - Orders/Labs/Meds Orders: Active Orders 24 hr Category Date Time Status CULTURE URINE [MREF] Stat Lab 06/01/21 05:55 Received Labs: Laboratory Tests 06/01/21 06/01/21 06/01/21 Range/Units 04:40 04:40 04:40 WBC 6.61 (4.0-11.0) K/uL RBC 4.00 L (4.30-5.90) M/uL Hgb 10.9 L (12.0-16.0) g/dL Hct 32.6 L (36.0-46.0) % MCV 81.5 (80.0-98.0) fL MCH 27.3 (27.0-32.0) pg MCHC 33.4 (31.0-37.0) g/dL RDW Std Deviation 51.1 (28.0-62.0) fl RDW Coeff of Reynaldo 17 H (11.0-15.0) % Plt Count 246 (150-400) K/uL MPV 9.90 (7.40-12.00) fL Neut % (Auto) 39.3 L (48.0-80.0) % Lymph % (Auto) 42.4 H (16.0-40.0) % [place] % (Auto) 11.2 (0.0-15.0) % Eos % (Auto) 6.2 (0.0-7.0) % Baso % (Auto) 0.9 (0.0-1.5) % Neut # (Auto) 2.6 (1.4-5.7) K/uL Lymph # (Auto) 2.8 H (0.6-2.4) K/uL [place] # (Auto) 0.7 (0.0-0.8) K/uL Eos # (Auto) 0.4 (0.0-0.7) K/uL Baso # (Auto) 0.1 (0.0-0.1) K/uL Nucleated RBC % 0.0 /100WBC Nucleated RBCs # 0 K/uL Sodium 140 (136-145) mmol/L Potassium 4.0 (3.5-5.1) mmol/L Chloride 106 (98-107) mmol/L Carbon Dioxide 32.0 (21.0-32.0) mmol/L BUN 10 (7.0-18.0) mg/dL Creatinine 0.7 (0.6-1.0) mg/dL Est Cr Clr Drug Dosing 97.01 mL/min Estimated GFR (MDRD) > 60.0 ml/min Glucose 121 H (74-106) mg/dL Calcium 10.9 H (8.5-10.1) mg/dL Total Bilirubin 0.3 (0.2-1.0) mg/dL AST 19 (15-37) IU/L ALT 27 (14-63) IU/L Alkaline Phosphatase 67 (46-116) U/L Total Protein 7.0 (6.4-8.2) g/dL Albumin 3.5 (3.4-5.0) g/dL Globulin 3.5 (2.6-4.0) g/dL Albumin/Globulin Ratio 1.0 (0.9-1.6) Lipase 63 L (73-393) U/L HCG, Qual NEGATIVE (NEG) Urine Color Urine Appearance Urine pH (5.0-8.0) Ur Specific [place] (1.001-1.035) Urine Protein (NEGATIVE) mg/dL Urine Glucose (UA) (NEGATIVE) mg/dL Urine Ketones (NEGATIVE) mg/dL Urine Occult Blood (NEGATIVE) Urine Nitrite (NEGATIVE) Urine Bilirubin (NEGATIVE) Urine Urobilinogen (<2.0) EU/dL Ur Leukocyte Esterase (NEGATIVE) Urine RBC (0-2/HPF) Urine WBC (0-5/HPF) Ur Epithelial Cells (NONE-FEW) Urine Bacteria (NEGATIVE) 06/01/21 06/01/21 Range/Units 05:05 05:55 WBC (4.0-11.0) K/uL RBC (4.30-5.90) M/uL Hgb (12.0-16.0) g/dL Hct (36.0-46.0) % MCV (80.0-98.0) fL MCH (27.0-32.0) pg MCHC (31.0-37.0) g/dL RDW Std Deviation (28.0-62.0) fl RDW Coeff of Reynaldo (11.0-15.0) % Plt Count (150-400) K/uL MPV (7.40-12.00) fL Neut % (Auto) (48.0-80.0) % Lymph % (Auto) (16.0-40.0) % [place] % (Auto) (0.0-15.0) % Eos % (Auto) (0.0-7.0) % Baso % (Auto) (0.0-1.5) % Neut # (Auto) (1.4-5.7) K/uL Lymph # (Auto) (0.6-2.4) K/uL [place] # (Auto) (0.0-0.8) K/uL Eos # (Auto) (0.0-0.7) K/uL Baso # (Auto) (0.0-0.1) K/uL Nucleated RBC % /100WBC Nucleated RBCs # K/uL Sodium (136-145) mmol/L Potassium (3.5-5.1) mmol/L Chloride (98-107) mmol/L Carbon Dioxide (21.0-32.0) mmol/L BUN (7.0-18.0) mg/dL Creatinine (0.6-1.0) mg/dL Est Cr Clr Drug Dosing mL/min Estimated GFR (MDRD) ml/min Glucose (74-106) mg/dL Calcium (8.5-10.1) mg/dL Total Bilirubin (0.2-1.0) mg/dL AST (15-37) IU/L ALT (14-63) IU/L Alkaline Phosphatase (46-116) U/L Total Protein (6.4-8.2) g/dL Albumin (3.4-5.0) g/dL Globulin (2.6-4.0) g/dL Albumin/Globulin Ratio (0.9-1.6) Lipase (73-393) U/L HCG, Qual (NEG) Urine Color RED YELLOW Urine Appearance CLOUDY CLEAR Urine pH 7.0 6.0 (5.0-8.0) Ur Specific [place] 1.025 1.025 (1.001-1.035) Urine Protein TRACE H NEGATIVE (NEGATIVE) mg/dL Urine Glucose (UA) NEGATIVE NEGATIVE (NEGATIVE) mg/dL Urine Ketones NEGATIVE NEGATIVE (NEGATIVE) mg/dL Urine Occult Blood LARGE H SMALL H (NEGATIVE) Urine Nitrite POSITIVE H POSITIVE H (NEGATIVE) Urine Bilirubin NEGATIVE NEGATIVE (NEGATIVE) Urine Urobilinogen 0.2 0.2 (<2.0) EU/dL Ur Leukocyte Esterase TRACE H NEGATIVE (NEGATIVE) Urine RBC 100-120 0-2 (0-2/HPF) Urine WBC 2-5 NONE SEEN (0-5/HPF) Ur Epithelial Cells FEW RARE (NONE-FEW) Urine Bacteria FEW NOT SEEN (NEGATIVE) Meds: Medications Discontinued Medications Generic Name Dose Route Start Last Admin Trade Name Marioq PRN Reason Stop Dose Admin Iopamidol 100 ml 06/01/21 06:50 06/01/21 06:50 Iopamidol 755 Mg/Ml 500 Ml Multipack Bottle IVPUSH 06/01/21 06:51 100 ml ONETIME STA Administration Ketorolac Tromethamine 30 mg 06/01/21 05:03 06/01/21 05:14 Ketorolac 30 Mg/Ml Sdv IVPUSH 06/01/21 05:04 30 mg ONETIME ONE Administration Morphine Sulfate 4 mg 06/01/21 07:19 06/01/21 07:32 Morphine 4 Mg/Ml Syringe IVPUSH 06/01/21 07:20 4 mg ONETIME ONE Administration Morphine Sulfate 8 mg 06/01/21 07:21 06/01/21 08:00 Morphine 4 Mg/Ml Syringe IVPUSH 06/01/21 07:22 Not Given ONETIME ONE Departure - Departure Time of Disposition: 10:02 Condition: Good - Discharge Information *PRESCRIPTION DRUG MONITORING PROGRAM REVIEWED*: Not Applicable *COPY OF PRESCRIPTION DRUG MONITORING REPORT IN PATIENT TYLER: Not Applicable Sepsis Event Note (ED) - Focused Exam Vital Signs: Vital Signs Temp Pulse Resp BP Pulse Ox 06/01/21 08:14 97.4 F 76 16 120/69 96 06/01/21 07:11 78 16 116/64 98 06/01/21 04:48 97.1 F 71 18 132/93 H 96 - Assessment/Plan Assessment:: 0805: Patient received in signout from prior provider at [address] shows significant constipation. However patient reports that she is on a high-fiber cleanse and has been pooping regularly. In general she is feeling much much better in terms of her chronic pain and losing weight etc. She notes that she reintroduced some processed foods with some doughnuts as well as some alcohol and wonders if this may have caused her symptoms. I would be a diagnosis of exclusion her pain is much improved after dose of morphine. Ultrasound pending to exclude ovarian torsion and evaluate signs for ovarian cyst rupture which is presented in a similar way in this patient in the past. 1002: Ultrasound is normal. I do think functional abdominal pain is the most likely cause of her symptoms. Patient has not had any of her morning chronic pain medication and she would like a second dose of morphine here I think that is reasonable. Patient will follow up with her PCP return precaution discussed and understood.
[2021-06-01 05:11] LABS: BLOOD UREA NITROGEN,BUN 10 mg/dL (7.0-18.0); CHLORIDE,CL 106 mmol/L (98-107); GLUCOSE RANDOM 121 mg/dL (74-106); LIPASE 63 U/L (73-393); SODIUM,NA 140 mmol/L (136-145)
[2021-06-01] MEDS ORDERED: Iopamidol 755 MG/ML 500 ML Multipack Bottle IVPUSH STA (06:50)
[2021-06-01] MEDS ORDERED: Morphine 4 MG/ML Syringe IVPUSH ONE ×3 (07:19→10:13)
--- NOTE | 2021-06-01 07:20 | CT ---
INDICATION: Abdominal pain. Consider diverticulitis, ovarian cysts, pyelonephritis and kidney stone. TECHNIQUE: Volumetric helical scanning of the abdomen and pelvis was performed with 100 cc of Isovue 370 contrast material IV. Coronal and sagittal reconstructions were obtained. COMPARISON: Abdomen/pelvis CT of 04/02/2019. FINDINGS: There is no evidence of bowel obstruction or inflammation. The appendix is not identified with certainty. No pericecal inflammatory change is apparent. There is a large amount of stool throughout the colon in comparison the previous exam. The stomach is distended with food. The small bowel is unremarkable. The liver, bile ducts, spleen, adrenal glands and pancreas are unremarkable. The kidneys are negative except for a 3 mm left renal collecting system stone. The uterus is mildly enlarged. The ovaries are grossly negative. No free fluid is apparent. The lung bases are clear, and the heart size is normal. IMPRESSION: 1. Constipation. 2. 3 mm left renal collecting system stone. 3. Mild uterine enlargement. Please note that all CT scans at this facility use dose modulation, iterative reconstruction, and/or weight-based dosing when appropriate to reduce radiation dose to as low as reasonably achievable. Dictated by Walter Magana MD @ 06/01/2021 7:19:22 AM (Electronically Signed)
--- NOTE | 2021-06-01 09:36 | US ---
INDICATION: Left lower quadrant pain. Rule out torsion. TECHNIQUE: Transabdominal and transvaginal scanning was performed. Transvaginal scanning was performed to optimally evaluate the endometrium and adnexa. Ovarian blood flow was evaluated with color-flow and pulsed Doppler. COMPARISON: None. FINDINGS: The uterus is mildly enlarged but normal in shape. The uterus measures 8.9 x 5.6 x 5.2 cm. No uterine mass is evident. The endometrial stripe is normal in thickness at 10 mm. The ovaries are normal in size and contain a number of follicles. The right ovary measures 2.8 x 2.3 x 1.7 cm and left 2.1 x 2.1 x 1.2 cm. Ovarian blood flow is demonstrated with color-flow and pulsed Doppler. No adnexal mass is evident. No free fluid is demonstrated. IMPRESSION: 1. Normal ovaries and adnexa. 2. Mildly enlarged uterus. Dictated by Walter Magana MD @ 06/01/2021 9:35:40 AM (Electronically Signed)
[2021-06-01] MEDS ORDERED: Morphine 4 MG/ML Syringe ONE (10:13)
[2021-06-01 10:16] VITALS: BP 118/67; PULSE 78
== END 2021-06-01 10:26 | disposition home or self-care (01) ==
LOC: MW.ED 04:35
DX: K52.9 Noninfective gastroenteritis and colitis, unspecified (principal); I10 Essential (primary) hypertension; Z91.040 Latex allergy status; Z91.048 Other nonmedicinal substance allergy status; Z88.1 Allergy status to other antibiotic agents; Z88.2 Allergy status to sulfonamides; Z88.0 Allergy status to penicillin; Z88.5 Allergy status to narcotic agent
CPT/HCPCS: 36415; 74177; 76856; 80053; 81001; 83690; 84703; 85025; 87086; 96374; 96375; 96376; 99284; J1885; J2270; Q9967

== ENCOUNTER 2021-07-01 16:43 | Emergency (ER) | payer BC ==
[2021-07-01] MEDS ORDERED: Sodium Chloride 0.9% 1,000 ML IV ONE (17:11)
[2021-07-01 18:23] LABS: ACETAMINOPHEN <2.0 ug/mL; BLOOD UREA NITROGEN,BUN 12 mg/dL (7.0-18.0); CARBON DIOXIDE,CO2 27.4 mmol/L (21.0-32.0); CHLORIDE,CL 98 mmol/L (98-107); GLUCOSE RANDOM 97 mg/dL (74-106); POTASSIUM,K 3.4 mmol/L (3.5-5.1); SODIUM,NA 137 mmol/L (136-145)
--- NOTE | 2021-07-01 19:02 | EDM.PDOC ---
ED HPI GENERAL MEDICAL PROBLEM - General Chief Complaint: General Stated Complaint: anxiety Time Seen by Provider: 07/01/21 16:44 Source of Information: Reports: Patient History Limitations: Reports: No Limitations - History of Present Illness INITIAL COMMENTS - FREE TEXT/NARRATIVE: HISTORY AND PHYSICAL: History of present illness: Patient is a 41-year-old female presents emergency room today via EMS with concern of anxiety, increase in life stressors, and inability to sleep well over the past 1 to 2 weeks. Patient states that her life stressors have been so great that she feels like she cannot perform her daily duties. Patient states that she feels like she cannot let her dog out or take care of herself. Patient states that today, she was supposed to have a physical therapy appointment due to chronic low back issues but states that the appointment got canceled as the provider had a sick child and could not find anyone to take care of the child. Patient states that this sent her over her tipping point and she has been continuously crying and anxious since. Patient states that she has not been able to get a good night sleep over the past 1-2 which she does feel is affecting her daily life. Patient denies any homicidal or suicidal ideation. Patient denies fever, chills, chest pain, shortness of breath, or cough. Denies headache, neck stiff ness, change in vision, syncope, or near syncope. Denies nausea, vomiting, abdominal pain, diarrhea, constipation, or dysuria. Has not noted any blood in urine or stool. Patient has been eating and drinking approp riately. Review of systems: As per history of present illness and below otherwise all systems reviewed and negative. Past medical history: As per history of present illness and as reviewed below otherwise noncontributory. Surgical history: As per history of present illness and as reviewed below otherwise noncontributory. Social history: See social history for further information Family history: As per history of present illness and as reviewed below otherwise noncontributory. Physical exam: General: Patient is alert, oriented, and in no acute distress. Patient sitting comfortably on exam table. Patient is actively crying on exam and anxious appearing, otherwise vitally stable and reviewed by me. HEENT: Atraumatic, normocephalic, pupils equal and reactive bilaterally, negative for conjunctival pallor or scleral icterus, mucous membranes moist, TMs normal bilaterally, throat clear, neck supple, nontender, trachea midline. No drooling or trismus noted. No meningeal signs. No hot potato voice noted. Lungs: Clear to auscultation, breath sounds equal bilaterally, chest nontender. Heart: S1S2, regular rate and rhythm without overt murmur Abdomen: Soft, nondistended, nontender. Negative for masses or hepatosplenomegaly. Negative for costovertebral tenderness. Pelvis: Stable nontender. Genitourinary: Deferred. Rectal: Deferred. Skin: Intact, warm, dry. No lesions or rashes noted. Extremities: Atraumatic, negative for cords or calf pain. Neurovascular unremarkable. Neuro: Awake, alert, oriented. Cranial nerves II through XII unremarkable. Cerebellum unremarkable. Motor and sensory unremarkable throughout. Exam nonfocal. Notes: Patient is a 41-year-old female resents emergency room today with concern of increasing life stressors, anxiety, and difficulty sleeping x2 weeks. Upon arrival to the ED, patient is actively crying on exam and anxious appearing, otherwise well-appearing on exam and exam is unremarkable. I did discuss with patient the [facility] option availability and she would like to pursue this. Nursing staff did contact the [facility]U facility who would like us to perform mental health screening labs and call them once these have returned for a formal assessment. Mental health screening labs obtained A [facility] staff member has been to the emergency room to formally evaluate the patient, however, she does not want to do this at this time. Strict return prec autions thoroughly discussed with patient. Discussed importance for follow-up with a primary care provider. Voices understanding and is agreeable to plan of care. Denies any further questions or concerns at this time. Diagnostics: Ental health screening labs Therapeutics: Normal saline Prescription: None Impression: Anxiety Insomnia Plan: 1. Follow-up with your primary care provider as discussed. Return to the ED as needed and as discussed. Definitive disposition and diagnosis as appropriate pending reevaluation and review of above. - Related Data Allergies Allergy/AdvReac Type Severity Reaction Status Date / Time adhesive Allergy Blisters Verified 06/01/21 04:52 ciprofloxacin [From Cipro] Allergy Cannot Verified 06/01/21 04:52 Remember Latex, Natural Rubber Allergy Blisters Verified 06/01/21 04:52 penicillin Allergy Hives Verified 06/01/21 04:52 Sulfa (Sulfonamide Allergy Rash Verified 06/01/21 04:52 Antibiotics) sulfamethoxazole Allergy Rash Verified 06/01/21 04:52 [From Mayra] trimethoprim [From ] Allergy Rash Verified 06/01/21 04:52 codeine AdvReac unsure Verified 06/01/21 04:52 Home Meds: Home Meds oxyCODONE HCl [oxyCODONE] 30 mg PO Q6H PRN 05/12/15 [History] tiZANidine [Zanaflex] 2 tab PO ASDIRECTED PRN 12/14/17 [History] Labetalol HCl [Labetalol] 200 mg PO BID 02/05/18 [History] Cyclobenzaprine [Flexeril] 10 mg PO BID 06/01/21 [History] Methylphenidate HCl [Methylphenidate ER] 10 mg PO BID 06/01/21 [History] Morphine [MS Contin] 30 mg PO BID 06/01/21 [History] diazePAM [Valium] 5 mg PO Q6H PRN 06/01/21 [History] Past Medical History - Past Health History Medical/Surgical History: Denies Medical/Surgical History HEENT History: Reports: Allergic Rhinitis Cardiovascular History: Reports: Heart Murmur, Hypertension Other Cardiovascular History: HTN Respiratory History: Reports: Asthma Gastrointestinal History: Reports: Other (See Below) Other Gastrointestinal History: ulcer, occasional heartburn Genitourinary History: Reports: Other (See Below) Other Genitourinary History: kidney infections in the past DIRECTOR CARDIOVASCULAR History: Reports: , Other (See Below) Other DIRECTOR CARDIOVASCULAR History: states ruptured ovarian cyst in the past Musculoskeletal History: Reports: Back Pain, Chronic, Fracture, Other (See Below) Other Musculoskeletal History: Broken Back in December 2014; Neurological History: Reports: Migraines Psychiatric History: Reports: Anxiety Endocrine/Metabolic History: Reports: None Insulin Pump Model and Leak Hunter: None Hematologic History: Reports: None Immunologic History: Reports: None Oncologic (Cancer) History: Reports: None Dermatologic History: Reports: None - Infectious Disease History Infectious Disease History: Reports: Chicken Pox - Past Surgical History Head Surgeries/Procedures: Reports: None HEENT Surgical History: Reports: Oral Surgery Other HEENT Surgeries/Procedures: multiple oral surgeries Cardiovascular Surgical History: Reports: None GI Surgical History: Reports: None Neurological Surgical History: Reports: None Musculoskeletal Surgical History: Reports: None Social & Family History - Family History Family Medical History: No Pertinent Family History - Tobacco Use Tobacco Use Status *Q: Never Tobacco User - Caffeine Use Caffeine Use: Reports: Coffee, Soda - Recreational Drug Use Recreational Drug Use: No ED ROS GENERAL - Review of Systems Review Of Systems: Comprehensive ROS is negative, except as noted in HPI. ED EXAM, GENERAL - Physical Exam Exam: See Below (See dictation) Course - Vital Signs Last Recorded V/S: Last Vital Signs Temp 98 F 07/01/21 16:44 Pulse 111 H 07/01/21 18:45 Resp 18 07/01/21 18:45 BP 127/77 07/01/21 18:45 Pulse Ox 99 07/01/21 18:45 - Orders/Labs/Meds Labs: Laboratory Tests 07/01/21 07/01/21 07/01/21 Range/Units 17:32 17:32 17:32 WBC 11.57 H (4.0-11.0) K/uL RBC 4.33 (4.30-5.90) M/uL Hgb 12.1 (12.0-16.0) g/dL Hct 35.0 L (36.0-46.0) % MCV 80.8 (80.0-98.0) fL MCH 27.9 (27.0-32.0) pg MCHC 34.6 (31.0-37.0) g/dL RDW Std Deviation 45.9 (28.0-62.0) fl RDW Coeff of Reynaldo 16 H (11.0-15.0) % Plt Count 266 (150-400) K/uL MPV 9.90 (7.40-12.00) fL Neut % (Auto) 66.3 (48.0-80.0) % Lymph % (Auto) 21.0 (16.0-40.0) % [place] % (Auto) 10.1 (0.0-15.0) % Eos % (Auto) 2.3 (0.0-7.0) % Baso % (Auto) 0.3 (0.0-1.5) % Neut # (Auto) 7.7 H (1.4-5.7) K/uL Lymph # (Auto) 2.4 (0.6-2.4) K/uL [place] # (Auto) 1.2 H (0.0-0.8) K/uL Eos # (Auto) 0.3 (0.0-0.7) K/uL Baso # (Auto) 0.0 (0.0-0.1) K/uL Nucleated RBC % 0.0 /100WBC Nucleated RBCs # 0 K/uL Sodium 137 (136-145) mmol/L Potassium 3.4 L (3.5-5.1) mmol/L Chloride 98 (98-107) mmol/L Carbon Dioxide 27.4 (21.0-32.0) mmol/L BUN 12 (7.0-18.0) mg/dL Creatinine 0.6 (0.6-1.0) mg/dL Est Cr Clr Drug Dosing 113.18 mL/min Estimated GFR (MDRD) > 60.0 ml/min Glucose 97 (74-106) mg/dL Calcium 11.2 H (8.5-10.1) mg/dL Magnesium 1.6 L (1.8-2.4) mg/dL Total Bilirubin 1.1 H (0.2-1.0) mg/dL AST 46 H (15-37) IU/L ALT 37 (14-63) IU/L Alkaline Phosphatase 63 (46-116) U/L Total Protein 8.0 (6.4-8.2) g/dL Albumin 4.0 (3.4-5.0) g/dL Globulin 4.0 (2.6-4.0) g/dL Albumin/Globulin Ratio 1.0 (0.9-1.6) TSH, Ultra Sensitive 1.46 (0.36-3.74) uIU/mL Urine Color Urine Appearance Urine pH (5.0-8.0) Ur Specific [place] (1.001-1.035) Urine Protein (NEGATIVE) mg/dL Urine Glucose (UA) (NEGATIVE) mg/dL Urine Ketones (NEGATIVE) mg/dL Urine Occult Blood (NEGATIVE) Urine Nitrite (NEGATIVE) Urine Bilirubin (NEGATIVE) Urine Urobilinogen (<2.0) EU/dL Ur Leukocyte Esterase (NEGATIVE) Urine RBC (0-2/HPF) Urine WBC (0-5/HPF) Ur Epithelial Cells (NONE-FEW) Urine Bacteria (NEGATIVE) Urine HCG, Qual (NEGATIVE) Salicylates 3.0 (0-20) mg/dL Urine Opiates Screen (NEGATIVE) Ur Oxycodone Screen (NEGATIVE) Urine Methadone Screen (NEGATIVE) Acetaminophen <2.0 ug/mL Ur Barbiturates Screen (NEGATIVE) Ur Phencyclidine Scrn (NEGATIVE) Ur Amphetamine Screen (NEGATIVE) U Methamphetamines Scrn (NEGATIVE) U Benzodiazepines Scrn (NEGATIVE) U Cocaine Metab Screen (NEGATIVE) U Marijuana (THC) Screen (NEGATIVE) Ethyl Alcohol < 3.0 mg/dL SARS-CoV-2 RNA (MOUNIKA) NEGATIVE (NEGATIVE) 07/01/21 07/01/21 07/01/21 Range/Units 17:49 17:49 17:49 WBC (4.0-11.0) K/uL RBC (4.30-5.90) M/uL Hgb (12.0-16.0) g/dL Hct (36.0-46.0) % MCV (80.0-98.0) fL MCH (27.0-32.0) pg MCHC (31.0-37.0) g/dL RDW Std Deviation (28.0-62.0) fl RDW Coeff of Reynaldo (11.0-15.0) % Plt Count (150-400) K/uL MPV (7.40-12.00) fL Neut % (Auto) (48.0-80.0) % Lymph % (Auto) (16.0-40.0) % [place] % (Auto) (0.0-15.0) % Eos % (Auto) (0.0-7.0) % Baso % (Auto) (0.0-1.5) % Neut # (Auto) (1.4-5.7) K/uL Lymph # (Auto) (0.6-2.4) K/uL [place] # (Auto) (0.0-0.8) K/uL Eos # (Auto) (0.0-0.7) K/uL Baso # (Auto) (0.0-0.1) K/uL Nucleated RBC % /100WBC Nucleated RBCs # K/uL Sodium (136-145) mmol/L Potassium (3.5-5.1) mmol/L Chloride (98-107) mmol/L Carbon Dioxide (21.0-32.0) mmol/L BUN (7.0-18.0) mg/dL Creatinine (0.6-1.0) mg/dL Est Cr Clr Drug Dosing mL/min Estimated GFR (MDRD) ml/min Glucose (74-106) mg/dL Calcium (8.5-10.1) mg/dL Magnesium (1.8-2.4) mg/dL Total Bilirubin (0.2-1.0) mg/dL AST (15-37) IU/L ALT (14-63) IU/L Alkaline Phosphatase (46-116) U/L Total Protein (6.4-8.2) g/dL Albumin (3.4-5.0) g/dL Globulin (2.6-4.0) g/dL Albumin/Globulin Ratio (0.9-1.6) TSH, Ultra Sensitive (0.36-3.74) uIU/mL Urine Color YELLOW Urine Appearance CLEAR Urine pH 6.0 (5.0-8.0) Ur Specific [place] 1.020 (1.001-1.035) Urine Protein NEGATIVE (NEGATIVE) mg/dL Urine Glucose (UA) NEGATIVE (NEGATIVE) mg/dL Urine Ketones >=80 (NEGATIVE) mg/dL Urine Occult Blood NEGATIVE (NEGATIVE) Urine Nitrite NEGATIVE (NEGATIVE) Urine Bilirubin NEGATIVE (NEGATIVE) Urine Urobilinogen 0.2 (<2.0) EU/dL Ur Leukocyte Esterase NEGATIVE (NEGATIVE) Urine RBC 0-2 (0-2/HPF) Urine WBC 0-3 (0-5/HPF) Ur Epithelial Cells FEW (NONE-FEW) Urine Bacteria FEW (NEGATIVE) Urine HCG, Qual NEGATIVE (NEGATIVE) Salicylates (0-20) mg/dL Urine Opiates Screen NEGATIVE (NEGATIVE) Ur Oxycodone Screen POSITIVE (NEGATIVE) Urine Methadone Screen NEGATIVE (NEGATIVE) Acetaminophen ug/mL Ur Barbiturates Screen NEGATIVE (NEGATIVE) Ur Phencyclidine Scrn NEGATIVE (NEGATIVE) Ur Amphetamine Screen NEGATIVE (NEGATIVE) U Methamphetamines Scrn NEGATIVE (NEGATIVE) U Benzodiazepines Scrn POSITIVE (NEGATIVE) U Cocaine Metab Screen NEGATIVE (NEGATIVE) U Marijuana (THC) Screen NEGATIVE (NEGATIVE) Ethyl Alcohol mg/dL SARS-CoV-2 RNA (MOUNIKA) (NEGATIVE) Meds: Medications Discontinued Medications Generic Name Dose Route Start Last Admin Trade Name Freq PRN Reason Stop Dose Admin Sodium Chloride 1,000 mls @ 999 mls/hr 07/01/21 17:11 07/01/21 17:28 Normal Saline IV 07/01/21 18:11 999 mls/hr STAT ONE Administration Departure - Departure Time of Disposition: 19:01 Disposition: Home, Self-Care 01 Clinical Impression: Insomnia, Anxiety - Discharge Information Instructions: Generalized Anxiety Disorder, Adult, Insomnia Referrals: PCP,None [Primary Care Provider] - Forms: ED Department Discharge Additional Instructions: The following information is given to patients seen in the emergency department who are being discharged to home. This information is to outline your options for follow-up care. We provide all patients seen in our emergency department w ith a follow-up referral. The need for follow-up, as well as the timing and circumstances, are variable depending upon the specifics of your emergency department visit. If you don't have a primary care physician on staff, we will provide you with a referral. We always advise you to contact your personal physician following an emergency department visit to inform them of the circumstance of the visit and for follow-up with them and/or the need for any referrals to a consulting specialist. The emergency department will also refer you to a specialist when appropriate. This referral assures that you have the opportunity for follow-up care with a specialist. All of these measure are taken in an effort to provide you with optimal care, which includes your follow-up. Under all circumstances we always encourage you to contact your private physician who remains a resource for coordinating your care. When calling for follow-up care, please make the office aware that this follow-up is from your recent emergency room visit. If for any reason you are refused follow-up, please contact the [facility] Emergency Department at and asked to speak to the emergency department charge nurse. [facility] [address] [place] [id number] [address] 1. Follow-up with your primary care provider as discussed. Return to the ED as needed and as discussed. Sepsis Event Note (ED) - Evaluation Sepsis Screening Result: No Definite Risk - Focused Exam Vital Signs: Vital Signs Temp Pulse Resp BP Pulse Ox 07/01/21 18:45 111 H 18 127/77 99 07/01/21 16:44 98 F 127 H 19 135/96 H 95
[2021-07-01 20:22] VITALS: BP 104/86; PULSE 106
--- NOTE | 2021-07-03 17:53 | PCM.EKG ---
#1 Interpretation EKG Date: 07/01/21 Time: 17:45 Rhythm: NSR Rate (Beats/Min): 119 [place]: Normal P-Wave: Present QRS: Normal ST-T: Normal QT: Normal AK/PQ Interval: 148 EKG Interpretation Comments: non-ischemic EKG
== END 2021-07-01 20:15 | disposition home or self-care (01) ==
LOC: MW.ED 16:43
DX: F41.9 Anxiety disorder, unspecified (principal); G47.00 Insomnia, unspecified; I10 Essential (primary) hypertension; J45.909 Unspecified asthma, uncomplicated; Z91.048 Other nonmedicinal substance allergy status; Z88.1 Allergy status to other antibiotic agents; Z91.040 Latex allergy status; Z88.0 Allergy status to penicillin; Z88.2 Allergy status to sulfonamides; Z88.5 Allergy status to narcotic agent; Z20.822 Contact with and (suspected) exposure to COVID-19
CPT/HCPCS: 36415; 80053; 80143; 80179; 80305; 80307; 81001; 81025; 83735; 84443; 85025; 87635; 93005; 99284; J7030; U0002

== ENCOUNTER 2022-07-16 14:17 | Emergency (ER) | payer BC | END 2022-07-16 15:45 | disposition left against medical advice (07) | LOC: MW.ED 14:17 | DX: Z53.21 Procedure and treatment not carried out due to patient leaving prior to being seen by health care provider (principal) ==

== ENCOUNTER 2022-08-03 08:29 | Emergency (ER) | payer BC ==
[2022-08-03 08:53] VITALS: BP 161/103; PULSE 95
[2022-08-03 10:57] LABS: BLOOD UREA NITROGEN,BUN 11 mg/dL (7.0-18.0); CHLORIDE,CL 103 mmol/L (98-107); GLUCOSE RANDOM 110 mg/dL (74-106); LIPASE 81 U/L (73-393); SODIUM,NA 140 mmol/L (136-145)
[2022-08-03 10:59] LABS: ESTIMATED GFR 109 mL/min (>60)
[2022-08-03] MEDS ORDERED: Sodium Chloride 0.9% 1,000 ML IV ONE (11:22)
== END 2022-08-03 11:46 | disposition left against medical advice (07) ==
LOC: MW.ED 08:29
DX: R10.31 Right lower quadrant pain (principal); R10.32 Left lower quadrant pain; E83.52 Hypercalcemia; I10 Essential (primary) hypertension; Z88.0 Allergy status to penicillin; Z91.040 Latex allergy status; Z88.2 Allergy status to sulfonamides; Z88.1 Allergy status to other antibiotic agents
CPT/HCPCS: 36415; 80053; 80307; 83690; 84703; 85025; 99284

== ENCOUNTER 2022-08-03 21:52 | Emergency (ER) | payer BC ==
[2022-08-03 22:05] VITALS: BP 148/93; PULSE 85
[2022-08-03] MEDS ORDERED: hydrOXYzine HCl 25 MG Tab PO ONE ×2 (22:50→23:10)
[2022-08-03] MEDS ORDERED: Ketorolac 30 MG/ML SDV IVPUSH ONE (22:50)
[2022-08-03 23:25] LABS: BLOOD UREA NITROGEN,BUN 10 mg/dL (7.0-18.0); CARBON DIOXIDE,CO2 32.2 mmol/L (21.0-32.0); CHLORIDE,CL 103 mmol/L (98-107); GLUCOSE RANDOM 100 mg/dL (74-106); LIPASE 73 U/L (73-393); POTASSIUM,K 4.1 mmol/L (3.5-5.1); SODIUM,NA 140 mmol/L (136-145)
[2022-08-03 23:28] LABS: ESTIMATED GFR 109 mL/min (>60)
== END 2022-08-03 23:31 | disposition left against medical advice (07) ==
LOC: MW.ED 21:52
DX: R10.30 Lower abdominal pain, unspecified (principal); I10 Essential (primary) hypertension; Z91.048 Other nonmedicinal substance allergy status; Z91.040 Latex allergy status; Z88.1 Allergy status to other antibiotic agents; Z88.2 Allergy status to sulfonamides; Z88.5 Allergy status to narcotic agent; Z79.899 Other long term (current) drug therapy
CPT/HCPCS: 36415; 80053; 81001; 83690; 84702; 85025; 96374; 99284; A9270; J1885

== ENCOUNTER 2022-09-14 13:08 | Emergency (ER) | payer BC | END 2022-09-14 14:00 | disposition left against medical advice (07) | LOC: MW.ED 13:08 | DX: Z53.21 Procedure and treatment not carried out due to patient leaving prior to being seen by health care provider (principal) ==

== ENCOUNTER 2023-03-03 22:01 | Emergency (ER) | payer BC ==
[2023-03-03 22:11] VITALS: BP 125/75; PULSE 123
[2023-03-03] MEDS ORDERED: Diazepam 5 MG Tab PO ONE (23:13)
[2023-03-03] MEDS ORDERED: Orphenadrine 60 MG/2 ML Inj IM ONE (23:13)
[2023-03-04] MEDS ORDERED: Ketorolac 30 MG/ML SDV IM ONE (01:45)
[2023-03-04] MEDS ORDERED: tiZANidine 4 MG Tab PO SCH (01:45)
== END 2023-03-04 02:16 | disposition home or self-care (01) ==
LOC: MW.ED 22:01
DX: S30.0XXA Contusion of lower back and pelvis, initial encounter (principal); M62.830 Muscle spasm of back; I10 Essential (primary) hypertension; J45.909 Unspecified asthma, uncomplicated; Z91.048 Other nonmedicinal substance allergy status; Z88.1 Allergy status to other antibiotic agents; Z88.0 Allergy status to penicillin; Z88.2 Allergy status to sulfonamides; Z88.5 Allergy status to narcotic agent; W18.09XA Striking against other object with subsequent fall, initial encounter
CPT/HCPCS: 70450; 72125; 72128; 72131; 96372; 99284; A9270; J1885; 99283

== ENCOUNTER 2023-05-15 04:54 | Emergency (ER) | payer BC ==
[2023-05-15] MEDS ORDERED: Ibuprofen 600 MG Tab PO ONE (05:23)
[2023-05-15 06:25] VITALS: BP 135/91; PULSE 91
== END 2023-05-15 05:31 | disposition home or self-care (01) ==
LOC: MW.ED 04:54
DX: M25.511 Pain in right shoulder (principal); R07.89 Other chest pain; F41.9 Anxiety disorder, unspecified; J45.909 Unspecified asthma, uncomplicated; I10 Essential (primary) hypertension; Z88.0 Allergy status to penicillin; Z88.1 Allergy status to other antibiotic agents; Z88.2 Allergy status to sulfonamides; Z88.5 Allergy status to narcotic agent; Z88.8 Allergy status to other drugs, medicaments and biological substances; Z91.040 Latex allergy status; Z91.048 Other nonmedicinal substance allergy status
CPT/HCPCS: 93005; 99285; A9270; 93010; 99283

== ENCOUNTER 2024-07-31 13:57 | Emergency (ER) | payer BC | END 2024-07-31 14:27 | disposition left against medical advice (07) | LOC: MW.ED 13:57 | DX: Z53.21 Procedure and treatment not carried out due to patient leaving prior to being seen by health care provider (principal) ==

== ENCOUNTER 2025-05-08 22:40 | Emergency (ER) | payer BC ==
[2025-05-08 22:56] VITALS: BP 148/98
[2025-05-08] MEDS ORDERED: Sodium Chloride 0.9% 10 ML Syringe FLUSH PRN (23:18)
[2025-05-08] MEDS ORDERED: Sodium Chloride 0.9% 2.5 ML Syringe FLUSH PRN (23:18)
[2025-05-08] MEDS: methylPREDNISolone Sodium Succinate 125 MG/2 ML SDV IVPUSH ONE (23:30)
[2025-05-08] MEDS: diphenhydrAMINE 50 MG/ML SDV IVPUSH ONE (23:30)
[2025-05-08 23:43] LABS: BASOPHILS ABSOLUTE AUTO 0.04 K/uL (0.00-0.20); BASOPHILS PERCENT AUTO 1.0 % (0.0-1.0); EOSINOPHILS ABSOLUTE AUTO 0.17 K/uL (0.00-0.45); EOSINOPHILS PERCENT AUTO 4.2 % (0.0-6.0); IMMATURE GRAN ABSOLUTE AUTO 0.02 K/uL (0.00-0.05); IMMATURE GRAN PERCENT AUTO 0.5 % (0.0-0.4); LYMPHOCYTES ABSOLUTE AUTO 1.16 K/uL (1.00-4.80); LYMPHOCYTES PERCENT AUTO 28.7 % (24.0-44.0); MEAN PLATELET VOLUME 10.0 fL (9.4-12.3); MONOCYTES ABSOLUTE AUTO 0.38 K/uL (0.00-0.80); MONOCYTES PERCENT AUTO 9.4 % (0.0-8.0); NEUTROPHILS ABSOLUTE AUTO 2.27 K/uL (1.80-7.70); NEUTROPHILS PERCENT AUTO 56.2 % (41.0-71.0); NRBC ABSOLUTE 0.00 K/uL (0.00-0.02); NRBC PERCENT 0.0 /100WBC (0.0-0.2); PLATELET COUNT,PLT 230 K/uL (150-400); RED BLOOD CELL COUNT 3.67 M/uL (4.10-5.30); WHITE BLOOD CELL COUNT,WBC 4.04 K/uL (3.9-11.3)
[2025-05-09 00:02] LABS: BLOOD UREA NITROGEN,BUN 9.0 mg/dL (7.0-18.0); CARBON DIOXIDE,CO2 28.4 mmol/L (21.0-32.0); CHLORIDE,CL 101.0 mmol/L (98-107); CREATININE 0.6 mg/dL (0.6-1.0); EST CRCL DRUG DOSING (CG) 108.51 mL/min; GLUCOSE RANDOM 85.0 mg/dL (74-106); POTASSIUM,K 3.3 mmol/L (3.5-5.1); SODIUM,NA 137.0 mmol/L (136-145)
[2025-05-09 00:03] LABS: ESTIMATED GFR 111.0 mL/min (>60)
[2025-05-09 00:33] VITALS: PULSE 90
== END 2025-05-09 00:53 | disposition home or self-care (01) ==
LOC: MW.ED 22:40
DX: R21 Rash and other nonspecific skin eruption (principal); I10 Essential (primary) hypertension; Z88.2 Allergy status to sulfonamides; Z91.040 Latex allergy status; Z88.5 Allergy status to narcotic agent; Z88.0 Allergy status to penicillin; Z79.899 Other long term (current) drug therapy
CPT/HCPCS: 36415; 80048; 85025; 86140; 96374; 96375; 99283; J1200; J2919